=== PATIENT | male | born 1960 | race Caucasian/White ===

== ENCOUNTER → 2019-01-13 | Outpatient (REF) | payer OTHER | LOC: M LAB REF 12:41 | PROVIDERS: ATTEND Ophthalmology | DX: D23.111 Other benign neoplasm of skin of right upper eyelid, including canthus (principal) ==

== ENCOUNTER → 2019-08-15 | Outpatient (REF) | payer OTHER ==
[2019-08-15 18:27] LABS: PLATELET COUNT, AUTOMATED 282 10^3/uL (150-450)
[2019-08-15 18:32] LABS: INR 1.04; PROTHROMBIN TIME 13.3 SECONDS (11.8-14.0)
[2019-08-15 18:33] LABS: PARTIAL THROMBOPLASTIN TIME 33.4 SECONDS (25.0-38.4)
== END ==
LOC: M LAB REF 16:47
PROVIDERS: ATTEND Internal Medicine Pulmonary Disease
DX: R91.8 Other nonspecific abnormal finding of lung field (principal)

== ENCOUNTER → 2019-08-25 | Outpatient (CLI) | payer OTHER ==
[~2019-08-25] MED LIST: ASPI81TA26 PO; DIVA250T67; FLUT1INH2; LISI10TA4; TAMS1CAP17
[2019-08-25 12:23] LABS: BASO # 0.1 10^3/uL (0.0-0.2); BASO % 0.9 % (0.0-1.0); EOS # 0.2 10^3/uL (0.0-0.5); EOS % 2.8 % (0.0-3.0); HEMATOCRIT 50.4 % (42.0-52.0); HEMOGLOBIN 15.7 g/dl (13.5-17.5); LYMPH # 1.2 10^3/uL (1.5-5.0); LYMPH % 14.4 % (24.0-44.0); MEAN CORPUSCULAR HEMOGLOBIN 26.5 pg (27.0-33.0); MEAN CORPUSCULAR HGB CONC 31.2 g/dl (32.0-36.5); MEAN CORPUSCULAR VOLUME 85.1 fl (80.0-96.0); MONO # 0.7 10^3/uL (0.0-0.8); MONO % 8.7 % (0.0-5.0); NEUTROPHILS # 6.2 10^3/uL (1.5-8.5); NEUTROPHILS % 72.8 % (36.0-66.0); PLATELET COUNT, AUTOMATED 251 10^3/uL (150-450); RED BLOOD COUNT 5.92 10^6/uL (4.30-6.10); WHITE BLOOD COUNT 8.5 10^3/uL (4.0-10.0)
[2019-08-25 12:44] LABS: ALBUMIN 3.8 GM/DL (3.2-5.2); ALT/SGPT 22 U/L (12-78); BILIRUBIN,TOTAL 0.3 MG/DL (0.2-1.0); BLOOD UREA NITROGEN 17 MG/DL (7-18); CALCIUM LEVEL 9.1 MG/DL (8.5-10.1); CARBON DIOXIDE LEVEL 26 MEQ/L (21-32); CHLORIDE LEVEL 111 MEQ/L (98-107); CREATININE FOR GFR 1.12 MG/DL (0.70-1.30); GLOMERULAR FILTRATION RATE > 60.0 (>56); GLUCOSE, FASTING 93 MG/DL (70-100); SODIUM LEVEL 141 MEQ/L (136-145); TOTAL PROTEIN 7.6 GM/DL (6.4-8.2)
--- NOTE | 2019-08-25 13:33 | REP ---
Chest x-ray: Two views. History: Post right thoracentesis. Comparison chest x-ray August 13, 2019. Comparison chest CT study August 05, 2019. Findings: The size of the right pleural collection and thickening have decreased post thoracentesis. There is no evidence of pneumothorax. Chronic pleural thickening and calcification persists. Impression: Decreased size of the right pleural process. No complications seen. Electronically Signed by Carlos Marrufo MD 08/25/2019 01:55 P
[2019-08-25 13:37] LABS: PH BODY FLUID 7.098 UNITS (NOT ESTABLISHED); SOURCE, BODY FLUID pH PLEURAL
[2019-08-25 14:29] LABS: APPEARANCE, BODY FLUID CLOTTED (CLEAR); PLEURAL FL COLOR RED (COLORLESS); SOURCE, BODY FLUID PLEURAL
[2019-08-25 14:48] LABS: AMYLASE, BODY FLUID 48 U/L (NOT ESTABLISHED); LDH, BODY FLUID 5362 U/L (NOT ESTABLISHED); SOURCE, BODY FLUID AMYLASE PLEURAL; SOURCE, BODY FLUID GLUCOSE PLEURAL; SOURCE, BODY FLUID LDH PLEURAL; SOURCE, BODY FLUID TOT PROTEIN PLEURAL
[2019-08-25 15:05] VITALS: BP 128/66
--- NOTE | 2019-08-25 16:24 | REP ---
Ultrasound-guided thoracentesis The procedure was performed by SHANA Alexander, under the direct supervision of Dr. Marrufo. The risks and benefits of the procedure were explained to the patient and informed consent was obtained both verbally and written. Directly prior to the start of the procedure, a formal timeout was completed in the exam room. Pleural fluid on the right was localized using ultrasound guidance. The skin was prepped and draped in a sterile fashion. 7 ml of 1% lidocaine 10 mg/ml was used as a local anesthetic. Using ultrasound guidance, an 8-H[place] Konger multi side-hole catheter was inserted and advanced into the fluid. 480 ml of reddish/raoms colored fluid was withdrawn and sent to the lab for analysis. The patient tolerated the procedure well and there were no immediate complications. After the appropriate amount of monitored convalescence, the patient was discharged from the department. Reviewed by SHANA Mosley 08/25/2019 04:15 P Electronically Signed by Carlos Marrufo MD 08/25/2019 04:15 P
== END ==
LOC: M IRPRO 10:36
PROVIDERS: ATTEND Internal Medicine Pulmonary Disease
DX: J90 Pleural effusion, not elsewhere classified (principal)

== ENCOUNTER 2019-09-08 10:25 | Inpatient (IN) | payer OTHER ==
[~2019-09-08] VITALS: Ht 170.2 cm; Wt 87.5 kg
[2019-09-08] VITALS (10 sets, daily range): BP systolic 117–157; BP diastolic 70–84
[2019-09-08] MEDS: MOM 30ML SUSPENSION UDC PO SCH (09:00)
[~2019-09-08 10:25] MED LIST changes: -DIVA250T67; +DIVA250T67 PO; -FLUT1INH2; +FLUT1INH2 INH; -LISI10TA4; +LISI10TA4 PO; -TAMS1CAP17; +TAMS1CAP17 PO
[2019-09-08] MEDS ORDERED: AMOX500T2 PO (10:43)
[2019-09-08 12:14] LABS: BASO # 0.1 10^3/uL (0.0-0.2); BASO % 0.7 % (0.0-1.0); EOS # 0.2 10^3/uL (0.0-0.5); EOS % 1.9 % (0.0-3.0); HEMATOCRIT 45.4 % (42.0-52.0); HEMOGLOBIN 14.7 g/dl (13.5-17.5); LYMPH # 1.1 10^3/uL (1.5-5.0); LYMPH % 9.5 % (24.0-44.0); MEAN CORPUSCULAR HEMOGLOBIN 26.6 pg (27.0-33.0); MEAN CORPUSCULAR HGB CONC 32.4 g/dl (32.0-36.5); MEAN CORPUSCULAR VOLUME 82.2 fl (80.0-96.0); MONO # 0.8 10^3/uL (0.0-0.8); MONO % 6.9 % (0.0-5.0); NEUTROPHILS # 9.7 10^3/uL (1.5-8.5); NEUTROPHILS % 80.4 % (36.0-66.0); PLATELET COUNT, AUTOMATED 301 10^3/uL (150-450); RED BLOOD COUNT 5.52 10^6/uL (4.30-6.10)
[2019-09-08 12:27] LABS: INR 0.99; PROTHROMBIN TIME 12.8 SECONDS (11.8-14.0)
[2019-09-08 12:33] LABS: BLOOD UREA NITROGEN 21 MG/DL (7-18); CARBON DIOXIDE LEVEL 21 MEQ/L (21-32); CHLORIDE LEVEL 109 MEQ/L (98-107); CREATININE FOR GFR 1.05 MG/DL (0.70-1.30); GLOMERULAR FILTRATION RATE > 60.0 (>56); GLUCOSE, FASTING 80 MG/DL (70-100); POTASSIUM SERUM 4.6 MEQ/L (3.5-5.1); SODIUM LEVEL 140 MEQ/L (136-145)
--- NOTE | 2019-09-08 13:22 | HPEPDOC ---
[facility] Medical History & Physical Date of Admission Sep 08, 2019 Date of Service: Sep 08, 2019 Attending Physician: AIDA RAMOS MD History and Physical CHIEF COMPLAINT: Sent by PCP for possible empyema HISTORY OF PRESENT ILLNESS: 59-year-old male with past medical history of hypertension and bipolar depression, presents from PCPs office for evaluation of pleural effusion/possible empyema. Patient had a pleural effusion in 2003 which was drained and thought to have been secondary to pneumonia. He felt well up until a few weeks ago when he started experiencing similar symptoms, underwent a recent increases in the outpatient setting on 08/25/2019, which was exudative but no organisms grew on culture. He has been treated with Augmentin since then, started having some hemoptysis yesterday, went to the emergency department and was discharged home with follow up with primary care physician. He went to see his PCP today who took a sputum sample, which was also bloody and sent to the emergency department for admission. Patient is otherwise asymptomatic, denies any shortness of breath, fever, nausea, vomiting, chest pain, abdominal pain, diarrhea or constipation. His only symptom at this time is hemoptysis that started yesterday. 10 point review of system is negative except for above PAST MEDICAL HISTORY: 1. . Bipolar depression. 2. Hypertension. PAST SURGICAL HISTORY: 1. Hernia repair. SOCIAL HISTORY: Previous smoker, smoked 1 pack per day for 30 years Denies alcohol use. Denies drug use FAMILY HISTORY: Negative for cancer, heart disease ALLERGIES: Please see below. HOME MEDICATIONS: Please see below. PHYSICAL EXAMINATION: VITAL SIGNS: Please see below. GENERAL: No distress HEENT: Normocephalic, atraumatic, moist mucous membranes NECK: Supple CARDIOVASCULAR EXAMINATION: S1, S2, no murmurs RESPIRATORY EXAMINATION: Reduced on the right side with rhonchi, no wheezing ABDOMINAL EXAMINATION: Soft, nontender, nondistended, positive bowel sounds EXTREMITIES: Range of motion intact SKIN: No rash NEUROLOGICAL EXAMINATION: Alert and oriented 3, no focal deficits PSYCHIATRIC EXAMINATION: Calm and cooperative LABORATORY DATA: See below. IMAGING: CT chest showing right pleural effusion with calcification MICROBIOLOGY: Please see below. ASSESSMENT: 59-year-old male with past mental history of bipolar depression and hypertension who is been treated in the outpatient setting for possible empyema, presents today with hemoptysis. PLAN: 1. Possible empyema. CT chest shows moderate right-sided pleural effusion with calcification, thoracic surgery consult pending for possible chest tube versus VATS procedure, empiric Zosyn. 2. Bipolar depression. Continue Depakote 3. Hypertension. Continue lisinopril 4. BPH. Continue Flomax DVT prophylaxis: TEDs. GI prophylaxis: Not needed Vital Signs Vital Signs Date Time Temp Pulse Resp B/P (MAP) Pulse Ox O2 Delivery O2 Flow Rate FiO2 09/08/19 10:50 09/08/19 10:27 98.7 83 18 99 Room Air Laboratory Data Labs 24H Laboratory Tests 2 09/08/19 11:43: Immature Granulocyte % (Auto) 0.6, Neutrophils (%) (Auto) 80.4H, Lymphocytes (%) (Auto) 9.5L, Monocytes (%) (Auto) 6.9H, Eosinophils (%) (Auto) 1.9, Basophils (%) (Auto) 0.7, Neutrophils # (Auto) 9.7H, Lymphocytes # (Auto) 1.1L, Monocytes # (Auto) 0.8, Eosinophils # (Auto) 0.2, Basophils # (Auto) 0.1, Nucleated Red Blood Cells % (auto) 0.0, Prothrombin Time 12.8, Prothromb Time International Ratio 0.99, Activated Partial Thromboplast Time 32.0, Anion Gap 10, Glomerular Filtration Rate > 60.0, Calcium Level 9.0 CBC/BMP Laboratory Tests 09/08/19 11:43 Home Medications Scheduled Amoxicillin/Potassium Clav (Amox-Clav 500-125 mg Tablet) 1 Each Tablet, 1 TAB PO BID FILLED 09/04/19 FOR 10 DAYS Aspirin (Aspirin EC) 81 Mg Tablet.dr, 81 MG PO DAILY Divalproex Sodium (Divalproex Sodium) 250 Mg Tablet.dr, 250 MG PO QHS Fluticasone Propion/Salmeterol (Fluticasone-Salmeterol 113-14) 1 Each Aer.pow.ba, 1 PUFF INH BID Lisinopril (Lisinopril) 10 Mg Tablet, 10 MG PO DAILY Tamsulosin Hcl (Tamsulosin HCl) 0.4 Mg Capsule, 0.4 MG PO QHS Allergies Coded Allergies: haloperidol (Verified Adverse Reaction, Unknown, MUSCLE SPASM, 09/08/19) A-FIB/CHADSVASC A-FIB History Current/History of A-Fib/PAF?: No GONDAL,KHUBAIB N. MD Sep 08, 2019 13:22
--- NOTE | 2019-09-08 13:43 | REP ---
Clinical: Hemoptysis. Empyema. Technique: Axial noncontrast images from the thoracic inlet to the upper abdomen with coronal and sagittal re-formations. Findings: There is a moderate/large chronic right pleural collection with elements of rim calcification and adjacent atelectasis which are essentially unchanged when compared to outside examination dated 07/19/2019. Remainder of lung nick are clear. Mediastinum demonstrates relatively normal thoracic aorta, pulmonary vasculature and heart/pericardium. No aortic aneurysm. No pericardial effusion. No adenopathy. Thyroid goiter suggested. Surrounding musculoskeletal structures demonstrate age-related changes without focal abnormality. Impression: 1. [id number] chronic right empyema with adjacent atelectasis stable compared to outside examination dated 07/19/2019. 2. Goiter. 3. No further acute process. Electronically Signed by Jeffry Asher MD 09/08/2019 01:34 P
[2019-09-08] MEDS ORDERED: HEPARIN SOD (PORCINE) 5000 UNITS/ML VIAL (J1644 PER 1000UNITS) SC SCH (14:00)
[2019-09-08] MEDS: PIPERACILLIN/TAZOBACTAM SOD 3.375 GM in D5W MINI-BAG PLUS 50 ML IV SCH ×2 (14:30→20:25)
[2019-09-08] MEDS ORDERED: NORCO, ANEXSIA 5/325MG TABLET (HYDROcodone/ACETAMINOPHEN) PO PRN (14:45)
[2019-09-08] MEDS ORDERED: BISACODYL 10 MG SUPP PR PRN (14:45)
[2019-09-08] MEDS ORDERED: ACETAMINOPHEN TAB 650MG DOSE (2X325MG) PO PRN (14:45)
[2019-09-08] MEDS ORDERED: LEVALBUTEROL 1.25 MG/0.5 ML CONCENTRATE NEB NEB PRN (14:45)
[2019-09-08] MEDS ORDERED: ONDANSETRON 4MG/2ML VIAL (J2405) IV PRN (14:45)
[2019-09-08] MEDS ORDERED: PERCOCET 5MG/325MG TAB PO PRN ×2 (14:45)
[2019-09-08] MEDS ORDERED: KCL 20MEQ IN D5/NS 1000ML 1,000 ML IV SCH (15:00)
[2019-09-08] MEDS ORDERED: flumazeniL 0.5 MG/5 ML VIAL As Ordered ONE (15:06)
[2019-09-08] MEDS ORDERED: MIDAZOLAM INJ 2 MG/2 ML VIAL (J2250) As Ordered ONE ×2 (15:07→16:21)
[2019-09-08] MEDS ORDERED: LIDOCAINE 1% MDV 20ML VIAL As Ordered ONE (15:08)
--- NOTE | 2019-09-08 15:33 | ECGEPIP ---
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
[2019-09-08] MEDS ORDERED: LIDOCAINE 1% MDV 20ML VIAL XX ONE ×2 (16:30→19:00)
[2019-09-08] MEDS ORDERED: MIDAZOLAM INJ 2 MG/2 ML VIAL (J2250) IV ONE ×2 (16:30→19:00)
--- NOTE | 2019-09-08 16:51 | CR ---
DATE OF CONSULTATION: 09/08/2019 Mr. Grey is seen at the request of Dr. Sebastian for a recurrent pleural effusion and calcific pleural disease. Patient is a 59-year-old white male whose acute story starts this morning when he started to cough up blood. He states it came up in red globs and was more than streaked. He sought attention at the [facility] where he was told to continue Augmentin, which he had been previously placed on. He continued to cough up blood throughout the morning and finally saw Dr. Sebastian this morning and also coughed up blood in his presence. It is notable that his hemoptysis is after he takes a very large sniff through his nose to clear his nose. He does have a known nasal polyp. Nonetheless, he maintains that he is coughing blood, that it is not coming from the back of his throat. He does not complain of any new onset of shortness of breath. For a number of years, he gets short of breath with vigorous physical activity, including running. Other that that, he can do all the daily activities of living and all the normal activities of life. He has the above cough, but there is no chest pain and no chest discomfort. There is no weight loss and no fever, chills or sweats. He has no dysphagia. His pleural effusion was tapped on August 25 for 480 mL of reddish-ramos fluid. The chemistries were returned with a pH of 7.098, with a glucose of less than 1, an LDH of 5362, total protein of 4. A differential was not done. This looked to be an empyema, and he was started on the Augmentin. PAST MEDICAL ILLNESSES: Include hypertension, hyperlipidemia and bipolar depression. His past surgeries include bilateral inguinal hernias. MEDICATIONS AT HOME: Includes Augmentin, which was filled on 08/25/2019, along with aspirin 81 mg daily, divalproex 250 mg nightly, fluticasone/salmeterol 113-14 one puff twice a day, lisinopril 10 mg daily, and tamsulosin 0.4 mg daily. 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 He does not think he has been exposed to asbestos, but he could not really be sure. 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 No dogs or cats. No prior exposure to tuberculosis. HABITS: He used to smoke 1 to 1-1/2 packs a day of ultra lights, quit about 6 weeks ago. He used to have an alcohol problem, but he has not touched alcohol in numerous years. He also used to take numerous illicit drugs in his youth, including cocaine, crack and marijuana. He inhaled those. FAMILY HISTORY: Not pertinent to the acute situation. REVIEW OF SYSTEMS: CONSTITUTIONAL: See history of the present illness. Without fevers, chills, sweats, night sweats or weight loss. EYES: Without diplopia, without amaurosis fugax, without prior jaundice. NOSE: Does have occasional nose bleeds with a nasal polyp. TEETH: Missing numerous teeth. RESPIRATORY: See history of the present illness. CARDIAC: Without palpitations, tachycardias, or prior myocardial infarctions. Without peripheral edema or intermittent claudication. GASTROINTESTINAL: Without nausea, vomiting, diarrhea, constipation, melena, hematochezia, hematemesis or abdominal pain. GENITOURINARY: Without dysuria, hematuria, or history of renal stones. ENDOCRINE: Without diabetes, without thyroid disease. PSYCHIATRIC: With bipolar disorder. NEUROLOGIC: Without paralysis, paresthesias, or seizures. HEMATOLOGIC: Without prolonged bleeding times. PHYSICAL EXAMINATION: Well-developed, well-nourished, overweight white male, in no acute distress, who is quite anxious. Vital Signs: Temperature is 99.0, with a heart rate of 84 in a sinus rhythm, respiratory rate of 18, without the use of accessory muscles, who is 96% saturated on room, and whose blood pressure is 121/84. Eyes: Pupils equal, round and react to light. Extraocular movements intact. Sclerae nonicteric. Head is normocephalic. Nose: Without deformity. Mouth: Shows the mucous membranes to be pink and moist. Lips and commissures are without lesions. There is no thrush. He has multiple missing teeth. Neck is supple. There is no jugular venous distention. No subcutaneous emphysema. Trachea is midline. There is no lymphadenopathy or lymphadenopathy, and he has 2+ carotid upstrokes without bruits. Lungs: Show decreased breath sounds in the right hemithorax with a dull percussion note at the base. I hear scattered rhonchi most which clear with coughing, although there is some expiratory wheezing at the very end of expiration. Cardiac exam is without murmurs, clicks, gallops or rubs. I cannot feel his point of maximum impulse (PMI). S1 and S2 are normal. Abdomen is soft, nontender. Bowel sounds are positive. There is no hepatomegaly. No costovertebral angle (CVA) tenderness. Extremities: Show no pretibial edema. No calf tenderness. No differential swelling of the upper extremities. Skin is warm, dry and perfused, without cyanosis or mottling including that of the nail beds and knees. Neurologic: Shows II-XII intact along with gross motor and gross sensation intact. Gait is also intact. Psychiatric: Shows him to be awake, alert and oriented times three with appropriate mood and affect, but very anxious. INVESTIGATIONS: His white count today is 12.0 compared to 8.5 on 08/25/2019. Hemoglobin and hematocrit are 14.7 and 45.4 with a platelet count of 301. Differential shows 80% neutrophils, 9% lymphocytes, 6% monocytes. There are no immature forms, no toxic granulations. His electrolytes are essentially normal with a BUN and creatinine of 21 and 1.05 with a glucose of 80 and a calcium of 9.0. AST and ALT are normal with an albumin of 3.8. His PT/INR is 12.8 and 0.99 respectively with a PTT of [address] scan done today in the emergency room shows a moderate pleural effusion, but with calcium on both leaves of the pleura, both parietal and visceral pleura. These look to be only unilateral and inferior. It looks as though he has a pleural effusion on both sides of visceral pleura calcium. I really cannot quite make out what that means. My suspicion is the lung is entrapped. He has an exudative effusion, which was tapped a few days ago. I am not completely convinced that this is empyema. See discussion below. He does have underlying compression of the right lower lobe but not overly so. I do not see significant mediastinal lymphadenopathy. There are no other tumor masses. Surprisingly, he does not have an overwhelming amount of emphysematous changes, although there are some. Looks to have hyperplasia of the left adrenal with a normal right adrenal configuration. There are no lesions in his liver. There is no pericardial effusion. IMPRESSION: 1. Chronic recurrent pleural effusion. 2. Calcific pleural disease. 3. History of inhalational drug abuse as a teenager. 4. Nasal polyp. 5. Hemoptysis. 6. Hypertension. 7. Anxiety. PLAN AND DISCUSSION: His last pleurocentesis indicated that he has a highly exudative ascitic hypoglycemic effusion, which is consistent with an empyema but which could also be consistent with metastatic disease. Notably, he has no chest pain as I would expect with inflammatory disease. His chest x-ray done after his pleurocentesis showed marked resolution of his pleural effusion. He still had significant amounts left along the lateral chest wall. He does not have a recent chest film done in the emergency but rather just a CAT scan. I also do not know what to make of his hemoptysis. I do not know whether it is true hemoptysis or whether it is coming from his nasal polyp. He certainly gives the history of having taken deep sniffs through his nose and then all of sudden coughing up blood and that is suspicious for the nasal polyp bleeding. Will have to have Ear, Nose and Throat (ENT) evaluate that. For the time being, I am going to completely drain his chest with a chest tube. This will not be an easy procedure as he has the calcific pleural disease. Depending on what comes out, I may end up doing a tPA pleurolysis on him. Edited: [id number] shelley
--- NOTE | 2019-09-08 17:10 | RO ---
DATE OF PROCEDURE: 09/08/2019 PREPROCEDURE DIAGNOSIS: Right pleural effusion, possible empyema, possible malignancy. POSTPROCEDURE DIAGNOSIS: Right pleural effusion, possible empyema, possible malignancy. PROCEDURE: Insertion of a right lateral chest tube. SURGEON: Dr. Colton Clark CITY DESIGNER: ANESTHESIA: FINDINGS: The patient's CAT scan showed him to have very thick calcifications on both the parietal and pleural surfaces between which was the pleural effusion. The entry to the chest was quite difficult and required an excessive amount of force in order to get through the calcifications. Finally, however, that was accomplished and a #24 chest tube was placed and drained 400 mL of bloody opaque pleural fluid. DESCRIPTION OF PROCEDURE: Under satisfactory moderate sedation achieved with 4 mg of Versed, the patient was prepped and draped in the usual sterile fashion. A site was chosen, judging from the x-ray, in the approximate 7th intercostal space. Incision was made and a tunnel was created down to the chest wall and the rib. The highly calcific pleura was then entered after a considerable amount of force and spreading. The tunnel was expanded with a large Perlita clamp and a #24 chest tube was placed with the above results. Chest tube was secured to the chest wall with a #2 Tevdek suture. The patient tolerated the procedure well. A chest x-ray is pending.
--- NOTE | 2019-09-08 17:20 | REP ---
Portable chest x-ray: Single view. History: Pleural effusion. Comparison chest x-ray: August 25, 2019. Findings: A right chest tube is noted in place terminating over the medial to lower thorax. Pleural thickening persists on the right along with pleural calcification fairly extensively. There is no evidence of pneumothorax. Left lung remains clear. Impression: Right chest tube in place. Electronically Signed by Carlos Marrufo MD 09/08/2019 06:43 P
[2019-09-08 17:33] LABS: PH BODY FLUID 7.028 UNITS (NOT ESTABLISHED); SOURCE, BODY FLUID pH PLEURAL
[2019-09-08] MEDS: PANTOPRAZOLE 40MG TAB (PROTONIX) PO SCH (18:03)
[2019-09-08] MEDS: KETOROLAC 30 MG/ML VIAL (J1885) IV SCH ×2 (18:04→21:21)
[2019-09-08 18:31] LABS: APPEARANCE, BODY FLUID TURBID (CLEAR); PLEURAL FL COLOR RED (COLORLESS); SOURCE, BODY FLUID PLEURAL
[2019-09-08] MEDS: LEVALBUTEROL 1.25 MG/0.5 ML CONCENTRATE NEB NEB SCH (20:00)
[2019-09-08 20:03] LABS: AMYLASE, BODY FLUID 17 U/L (NOT ESTABLISHED); CHOLESTEROL, BODY FLUID < 50 MG/DL (NOT ESTABLISHED); LDH, BODY FLUID 13785 U/L (NOT ESTABLISHED); SOURCE, BODY FLUID ALBUMIN PLEURAL; SOURCE, BODY FLUID AMYLASE PLEURAL; SOURCE, BODY FLUID CHOL PLEURAL; SOURCE, BODY FLUID GLUCOSE PLEURAL; SOURCE, BODY FLUID LDH PLEURAL; SOURCE, BODY FLUID TOT PROTEIN PLEURAL; SOURCE, BODY FLUID TRIG PLEURAL; TOTAL PROTEIN, BODY FLUID 5.1 G/DL (NOT ESTABLISHED); TRIGLYCERIDE, BODY FLUID 71 MG/DL (NOT ESTABLISHED)
[2019-09-08] MEDS: DIVALPROEX 250 MG TAB PO SCH (20:26)
[2019-09-08] MEDS: HEPARIN SOD (PORCINE) 5000 UNITS/ML VIAL (J1644 PER 1000UNITS) SC SCH (20:26)
[2019-09-08] MEDS: TAMSULOSIN 0.4 MG CAP PO SCH (20:27)
[2019-09-08] MEDS: DOCUSATE SODIUM 100 MG CAP PO SCH (20:27)
[2019-09-08] MEDS: ADVAIR HFA 115/21MCG INHALER INH SCH (21:35)
[2019-09-09] VITALS: BP 113/65
[2019-09-09] MEDS: LEVALBUTEROL 1.25 MG/0.5 ML CONCENTRATE NEB NEB SCH ×4 (02:04→20:00)
[2019-09-09 02:38] LABS: LDH LACTATE DEHYDROGENASE 261 U/L (87-241)
[2019-09-09] MEDS: PIPERACILLIN/TAZOBACTAM SOD 3.375 GM in D5W MINI-BAG PLUS 50 ML IV SCH ×4 (03:05→20:10)
[2019-09-09 04:00] VITALS: BP 111/74
[2019-09-09] MEDS: KETOROLAC 30 MG/ML VIAL (J1885) IV SCH (05:02)
[2019-09-09 05:56] LABS: ABG BASE EXCESS -4.9 (-2.0-2.0); ABG HCO3 19.5 MEQ/L (22.0-26.0); ABG O2 SATURATION 97.5 % (95.0-99.0); ABG PARTIAL PRESSURE CO2 34.2 mmHg (35.0-45.0); ABG PARTIAL PRESSURE O2 97.1 mmHg (75.0-100.0); ABG STANDARD HCO3 20.5 MEQ/L (22.0-26.0); ABG TOTAL CO2 20.5 MEQ/L (22.0-29.0); ABG pH (ARTERIAL) 7.373 UNITS (7.350-7.450)
[2019-09-09 06:00] LABS: BASO # 0.1 10^3/uL (0.0-0.2); BASO % 0.8 % (0.0-1.0); EOS # 0.5 10^3/uL (0.0-0.5); EOS % 5.9 % (0.0-3.0); HEMATOCRIT 43.7 % (42.0-52.0); HEMOGLOBIN 13.3 g/dl (13.5-17.5); LYMPH # 0.9 10^3/uL (1.5-5.0); LYMPH % 10.8 % (24.0-44.0); MEAN CORPUSCULAR HGB CONC 30.4 g/dl (32.0-36.5); MEAN CORPUSCULAR VOLUME 85.5 fl (80.0-96.0); MONO # 0.8 10^3/uL (0.0-0.8); MONO % 9.8 % (0.0-5.0); NEUTROPHILS # 6.2 10^3/uL (1.5-8.5); NEUTROPHILS % 72.2 % (36.0-66.0); PLATELET COUNT, AUTOMATED 225 10^3/uL (150-450); RED BLOOD COUNT 5.11 10^6/uL (4.30-6.10); WHITE BLOOD COUNT 8.5 10^3/uL (4.0-10.0)
[2019-09-09 06:33] LABS: ALBUMIN 2.9 GM/DL (3.2-5.2); BILIRUBIN,TOTAL 0.3 MG/DL (0.2-1.0); CALCIUM LEVEL 8.4 MG/DL (8.5-10.1); CREATININE FOR GFR 1.59 MG/DL (0.70-1.30); MAGNESIUM LEVEL 2.3 MG/DL (1.8-2.4); POTASSIUM SERUM 4.6 MEQ/L (3.5-5.1); TOTAL PROTEIN 6.9 GM/DL (6.4-8.2)
[2019-09-09 08:00] VITALS: BP 130/83
--- NOTE | 2019-09-09 08:18 | REP ---
Chest x-ray: Two views. History: Pleural effusion. Status post chest tube placement. Comparison chest x-ray three September 25, 2019. Findings: Right pleural drainage catheter seen in place. There is pleural thickening and calcification in this patient with history of chronic empyema. There is a small quantity of pleural air suspected this just superior to the chest tube all along the right lateral chest. Some volume loss in the right hemithorax again noted. Left lung remains clear. Electronically Signed by Carlos Marrufo MD 09/09/2019 08:09 A
[2019-09-09] MEDS: ADVAIR HFA 115/21MCG INHALER INH SCH ×2 (08:21→21:18)
[2019-09-09] MEDS ORDERED: lisinopriL 10 MG TAB PO SCH (09:00)
[2019-09-09] MEDS ORDERED: ALTEPLASE 2 MG/2 ML VIAL (J2997 PER 1MG) XX ONE (09:00)
[2019-09-09] MEDS: ASPIRIN 81 MG ENTERIC TAB PO SCH (09:48)
[2019-09-09] MEDS: PANTOPRAZOLE 40MG TAB (PROTONIX) PO SCH (09:48)
[2019-09-09] MEDS: MOM 30ML SUSPENSION UDC PO SCH (09:49)
[2019-09-09] MEDS: DOCUSATE SODIUM 100 MG CAP PO SCH ×2 (09:49→20:10)
[2019-09-09] MEDS: HEPARIN SOD (PORCINE) 5000 UNITS/ML VIAL (J1644 PER 1000UNITS) SC SCH ×2 (09:49→20:11)
--- NOTE | 2019-09-09 11:24 | RO ---
DATE OF PROCEDURE: 09/09/2019 PREPROCEDURE DIAGNOSIS: Loculated pleural effusion and empyema. POSTPROCEDURE DIAGNOSIS: Loculated pleural effusion and empyema. PROCEDURE: Installation of tPA into the pleural space. SURGEON: Dr. Colton Clark. PMO ANALYST: ANESTHESIA: DESCRIPTION OF PROCEDURE: The chest tube was clamped and disconnected from the Pleur-evac and sterilely prepped. 6 mg of tPA in 50 mL of normal saline was instilled into the chest tube. The chest tube was again clamped and patient was turned from [id number] to distribute the tPA. The chest tube will be unclamped at 4 hours.
--- NOTE | 2019-09-09 11:35 | IPN ---
DATE OF SERVICE: 09/09/2019 Mr. Grey is doing rather well this morning. His pain is being well controlled at the chest tube insertion site. I am surprised that he is doing so well with his pain considering difficulty with insertion. His vital signs show a maximum temperature (Tmax) of 97.7 with a heart rate that ranges between 77 and 82 in a sinus rhythm, respiratory rate of 18-20 without the use of accessory muscles, who is 97% saturated on room air, and whose blood pressure is ranging between 117/77 to 130/83. His intake and output over the past 24 hours has been recorded as 476 in and 138 out for a positivity of 338 mL. He has put out 138 mL from the chest tube after insertion, after initial drainage 400 mL. Today in the last 10 hours, he has taken in 1150 mL and has had 788 mL out of which 750 mL is urine and 38 has been in chest tube output. The chest tube output is clearing and is now more serous. On physical examination, he has bilateral wheezing on either side in late expiration. Percussion note is full to the diaphragm. I hear no rales. He has scattered rhonchi, which clear with coughing. Cardiac examination: Is without murmurs, clicks, gallops, or rubs. I cannot feel his point of maximal impulse (PMI). S1 and S2 are normal. Abdomen: Is soft, nontender. Bowel sounds are positive. There is no hepatomegaly, no costovertebral angle (CVA) tenderness. He has had a bowel movement today. Extremities: Show no pretibial edema, no calf tenderness, no differential swelling of the upper extremities. Skin: Is warm, dry, and perfused without cyanosis or mottling, including that of the nail beds and the knees. Neck: Is supple. There is no jugular venous distention, no subcutaneous emphysema. Trachea is midline. Mouth: Shows his mucous membranes to be pink and moist. Lips and commissures without lesions. There is no thrush. Eyes: Show his pupils to be equal and reactive. Extraocular motor intact. Sclerae anicteric. Neurologic: Shows II-XII intact, along with gross motor and gross sensation intact. Gait is not tested. Psychiatric: Shows him to be awake and alert, oriented times three with appropriate mood and affect and conversational. His white count today is down to 8.5 with hemoglobin and hematocrit of 13.3 and 43.7 and a platelet count of 255. Differential shows 72% neutrophils, 10% lymphocytes, and 9% monocytes. There are no immature forms. No toxic granulations. His electrolytes are normal today with a BUN and creatinine of 33 and 1.59 which is up from 21 and 1.05. I will discontinue his Toradol. Glucose is 113 with a calcium of 8.4 and a corresponding albumin of 2.9. AST and ALT are normal. His plural fluid has come back with a pH of 7.028 with a glucose less than 1 and an LDH of 13,785. Total protein is 5.1. He has 106,000 white cells, 89% of which are neutrophils and 10% are mononuclears or lymphocytes. This, therefore, looks like an inflammatory empyema with severe exudation. Microbiology does not show any organisms. Culture results are pending. His chest x-ray today shows good resolution of the pleural effusion. The lung, however, has not completed expanded to the chest wall as it is encased in calcium. Right costophrenic angle is still obliterated. The chest tube looks to be in good place. I think that the lung is entrapped superiorly, and I do not see lung markings all the way out to the cupula. IMPRESSION: 1. Pleural effusion. Inflammatory. Exudative. Looking like an empyema. 2. Calcific pleural disease. 3. History of inhalational drug abuse as a teenager. 4. Nasal polyps. 5. Hemoptysis. 6. Hypertension. 7. Anxiety. PLAN AND DISCUSSION: I am still quite leery of calling this 100% an empyema. He has no chest pain as one would expect with a severe inflammatory response. I am still suspicious that it may be underlying malignancy; i.e, mesothelioma with severe calcifications of his pleura. I will await cytology. I will do a TPA pleurolysis after which I will repeat a CT scan. So, all the objective evidence points to an empyema.
[2019-09-09 12:00] VITALS: BP 136/77
[2019-09-09 16:00] VITALS: BP 140/86
[2019-09-09 20:00] VITALS: BP 151/91
[2019-09-09] MEDS: DIVALPROEX 250 MG TAB PO SCH (20:10)
[2019-09-09] MEDS: TAMSULOSIN 0.4 MG CAP PO SCH (20:10)
--- NOTE | 2019-09-09 21:56 | IPNPDOC ---
Date Seen The patient was seen on 09/09/19. Progress Note HISTORY OF PRESENT ILLNESS: 59-year-old male with past medical history of hypertension and bipolar depression, presents from PCPs office for evaluation of pleural effusion/possible empyema. Patient had a pleural effusion in 2003 which was drained and thought to have been secondary to pneumonia. He felt well up until a few weeks ago when he started experiencing similar symptoms, underwent a recent increases in the outpatient setting on 08/25/2019, which was exudative but no organisms grew on culture. He has been treated with Augmentin since then, started having some hemoptysis yesterday, went to the emergency department and was discharged home with follow up with primary care physician. He went to see his PCP today who took a sputum sample, which was also bloody and sent to the emergency department for admission. Patient is otherwise asymptomatic, denies any shortness of breath, fever, nausea, vomiting, chest pain, abdominal pain, diarrhea or constipation. His only symptom at this time is hemoptysis that started yesterday. 09/09/19 s/p chest tube placement yesterday, tPA was inserted into pleural space today to augment fluid removal. Patient comfortable, reports significant improvement in SOB, without any complaints at this time. He denies any chest pain, N/V/D or abdominal pain. Chest tube w/ serosanguinous drainage, exudative. 10 point review of system is negative except for above PHYSICAL EXAMINATION: VITAL SIGNS: Please see below. GENERAL: No distress HEENT: Normocephalic, atraumatic, moist mucous membranes NECK: Supple CARDIOVASCULAR EXAMINATION: S1, S2, no murmurs RESPIRATORY EXAMINATION: Reduced sided chest tube, rhonchi on R side w/ diminished breath sounds, no wheezing ABDOMINAL EXAMINATION: Soft, nontender, nondistended, positive bowel sounds EXTREMITIES: Range of motion intact SKIN: No rash NEUROLOGICAL EXAMINATION: Alert and oriented 3, no focal deficits PSYCHIATRIC EXAMINATION: Calm and cooperative LABORATORY DATA: See below. IMAGING: CT chest showing right pleural effusion with calcification MICROBIOLOGY: Please see below. ASSESSMENT: 59-year-old male with past mental history of bipolar depression and hypertension who is been treated in the outpatient setting for possible empyema, presents today with hemoptysis. PLAN: 1. Possible empyema. s/p chest tube & tPA into pleural space, chest tube draining serosanguinous fluid, pleural fluid exudative, suspicious for empyema vs malignancy. Gram stain w/o organisms, cultures & cytology pending. continue Zosyn 2. АННА - possibly due to IV NSAIDS and Antibiotics, Toradol & Lisinopril discontinued, will monitor. 3. Bipolar depression. Continue Depakote 4. Hypertension. Continue lisinopril 5. BPH. Continue Flomax DVT prophylaxis: Heparin SubQ GI prophylaxis: PPI VS, I&O, 24H, Fishbone Vital Signs/I&O Vital Signs Date Time Temp Pulse Resp B/P (MAP) Pulse Ox O2 Delivery O2 Flow Rate FiO2 09/09/19 20:00 97.7 79 18 151/91 (111) 97 Room Air 09/08/19 16:45 2.0 I&O- Last 24 Hours up to 6 AM 09/09/19 06:00 Intake Total 526 ml Output Total 626 ml Balance -100 ml Laboratory Data 24H LABS Laboratory Tests 2 09/09/19 05:36: Immature Granulocyte % (Auto) 0.5, Neutrophils (%) (Auto) 72.2H, Lymphocytes (%) (Auto) 10.8L, Monocytes (%) (Auto) 9.8H, Eosinophils (%) (Auto) 5.9H, Basophils (%) (Auto) 0.8, Neutrophils # (Auto) 6.2, Lymphocytes # (Auto) 0.9L, Monocytes # (Auto) 0.8, Eosinophils # (Auto) 0.5, Basophils # (Auto) 0.1, Nucleated Red Blood Cells % (auto) 0.0, Blood Gas Bicarbonate Standard 20.5L, Arterial Blood pH 7.373, Arterial Blood Partial Pressure CO2 34.2L, Arterial Blood Partial Pressure O2 97.1, Arterial Blood Total CO2 20.5L, Arterial Blood HCO3 19.5L, Arterial Blood Base Excess -4.9L, Arterial Blood Oxygen Saturation 97.5, Anion Gap 7L, Glomerular Filtration Rate 48.0L, Calcium Level 8.4L, Magnesium Level 2.3, Total Bilirubin 0.3, Aspartate Amino Transf (AST/SGOT) 13, Alanine Aminotransferase (ALT/SGPT) 19, Alkaline Phosphatase 62, Total Protein 6.9, Albumin 2.9L, Albumin/Globulin Ratio 0.73L CBC/BMP Laboratory Tests 09/09/19 05:36 Microbiology Microbiology 09/08/19 Acid Fast Stain, Received Pending 09/08/19 Mycobacterial Culture, Received Pending 09/08/19 Fungal Smear, Received Pending 09/08/19 Fungal Culture, Received Pending 09/08/19 Gram Stain - Final, Resulted 09/08/19 Anaerobic Culture, Resulted Pending 09/08/19 Body Fluid Culture, Received Pending AIDA RAMOS MD Sep 09, 2019 21:56
[2019-09-10] VITALS: BP 132/82
[2019-09-10] MEDS: LEVALBUTEROL 1.25 MG/0.5 ML CONCENTRATE NEB NEB SCH ×4 (01:33→20:00)
[2019-09-10] MEDS: PIPERACILLIN/TAZOBACTAM SOD 3.375 GM in D5W MINI-BAG PLUS 50 ML IV SCH ×4 (03:22→20:17)
[2019-09-10 04:00] VITALS: BP 130/74
[2019-09-10 05:44] LABS: BASO % 0.5 % (0.0-1.0); EOS # 0.5 10^3/uL (0.0-0.5); EOS % 6.3 % (0.0-3.0); HEMATOCRIT 42.3 % (42.0-52.0); HEMOGLOBIN 13.1 g/dl (13.5-17.5); LYMPH # 0.9 10^3/uL (1.5-5.0); LYMPH % 10.5 % (24.0-44.0); MEAN CORPUSCULAR HEMOGLOBIN 26.1 pg (27.0-33.0); MEAN CORPUSCULAR VOLUME 84.3 fl (80.0-96.0); MONO # 0.7 10^3/uL (0.0-0.8); MONO % 8.4 % (0.0-5.0); NEUTROPHILS # 6.3 10^3/uL (1.5-8.5); NEUTROPHILS % 73.8 % (36.0-66.0); PLATELET COUNT, AUTOMATED 239 10^3/uL (150-450); RED BLOOD COUNT 5.02 10^6/uL (4.30-6.10); WHITE BLOOD COUNT 8.6 10^3/uL (4.0-10.0)
[2019-09-10 06:07] LABS: CALCIUM LEVEL 8.5 MG/DL (8.5-10.1); CREATININE FOR GFR 1.31 MG/DL (0.70-1.30)
[2019-09-10 08:00] VITALS: BP 140/80
--- NOTE | 2019-09-10 08:25 | REP ---
CHEST X-RAY: Two views. HISTORY: Pleural effusion. COMPARISON STUDY: September 09, 2019. FINDINGS: Right chest tube remains in place. Pleural thickening, calcification, and a small amount of pleural air is seen adjacent to the chest tube site. The right hemithorax is unchanged. No new infiltrate is noted on the left. Heart is not enlarged. IMPRESSION: Stable changes right hemithorax. Electronically Signed by Carlos Marrufo MD 09/10/2019 09:12 A
[2019-09-10] MEDS: lisinopriL 10 MG TAB PO SCH (09:00)
[2019-09-10] MEDS: MOM 30ML SUSPENSION UDC PO SCH (09:00)
[2019-09-10] MEDS: DOCUSATE SODIUM 100 MG CAP PO SCH ×2 (09:00→20:15)
[2019-09-10] MEDS: HEPARIN SOD (PORCINE) 5000 UNITS/ML VIAL (J1644 PER 1000UNITS) SC SCH ×2 (09:44→20:16)
[2019-09-10] MEDS: PANTOPRAZOLE 40MG TAB (PROTONIX) PO SCH (09:44)
[2019-09-10] MEDS: ASPIRIN 81 MG ENTERIC TAB PO SCH (09:44)
[2019-09-10] MEDS: ADVAIR HFA 115/21MCG INHALER INH SCH ×2 (09:51→21:03)
--- NOTE | 2019-09-10 10:07 | REP ---
CT CHEST WITHOUT CONTRAST: HISTORY: Pleural effusion. CT FINDINGS: The right chest tube is seen within the chronic of right pleural fluid collection. There is air occupying the previously noted complex fluid collection. There is visceral and parietal pleural thickening and considerable calcification as on prior CT study. The volume of the collection is improved. There is still volume loss in the right hemithorax. No new infiltrate is seen. IMPRESSION: Chest tube in place in the chronic empyema cavity. There is visceral and parietal pleural calcification and significant pleural thickening. The cavity is decreased in size and contains air. Electronically Signed by Carlos Marrufo MD 09/10/2019 10:38 A
[2019-09-10] MEDS ORDERED: SLF 3 ML SYR IV PRN (11:30)
[2019-09-10 12:00] VITALS: BP 140/90
[2019-09-10] MEDS ORDERED: POLYVINYL ALCOHOL OPHTH SOLN 15 ML(LIQUITEARS) OU PRN (12:00)
--- NOTE | 2019-09-10 15:05 | IPN ---
DATE: 09/10/2019 Mr. Grey put out about 250 mL from his chest tube after his tPA pleurolysis. He is feeling well today. He is not taking anything for pain. His vital signs show a maximum temperature (T-max) of 97.8 with a heart rate that ranges between 77 and 88 in sinus rhythm, respiratory rate of 20-18 without the use of accessory muscles who is 97% saturated on room air and his blood pressure ranges between 136/77 to 151/91. His intake and output over the past 24 hours is recorded as 3150 in and 2583 out for a positivity of 565 mL. He put out 283 mL from the chest tube after ht tPA pleurolysis. He weighs 87.7 kg today compared to 90 kg yesterday. He put out 2300 mL in urine. On physical examination, he still has expiratory wheezing throughout almost all of his inspiration. Percussion note is dull at the right hemithorax at the base. I hear some rhonchi. Cardiac exam shows a murmur at the apex of approximately a grade 2. I have not heard that before. I cannot feel his point of maximum impulse (PMI). S1 and S2 are normal. Abdomen is soft and nontender. Bowel sounds are positive. There is no hepatomegaly. No costovertebral angle (CVA) tenderness. Extremities show no pretibial edema with no calf tenderness. No differential swelling of the upper extremities. Skin is warm, dry and perfused without cyanosis or mottling including that of the nail beds and knees. Neck is supple. There is no jugular venous distention. No subcutaneous emphysema. Trachea is midline. Mouth shows his mucous membranes to be pink and moist. Lips and commissures are without lesions. There is no thrush. Eyes show his pupils to be equal and reactive. Extraocular movements intact. Sclerae nonicteric. Neurologic shows II-XII intact along with gross motor and gross sensation intact. Gait is not tested. Psychiatric showed him to be awake, alert and oriented times three with appropriate and affect and conversational. His white count today is 8.6 unchanged from yesterday with a hemoglobin and hematocrit of 13.1 and 42.3, also unchanged from yesterday with a platelet count of 239. Differential shows 72% neutrophils, 10% lymphocytes, 8% monocytes. There are no immature forms or toxic granulations. His electrolytes show a potassium 5.0 up from 4.6 yesterday with a BUN and creatinine that are improving to 24 and 1.31 from 33 and 1.59. Toradol was discontinued yesterday. Glucose is 108 with a calcium of 8.5. Microbiology shows no aerobic or anaerobic growth and organisms with a Gram stain. Pathology is pending. His chest x-ray shows the lung from the chest wall in the bottom portion of the right hemithorax. Chest tube looks to be in good place. Looks to have increased markings on the right side. I did obtain a chest CT of him today. Chest CT confirms that the visceral and parietal pleura are not opposed in the inferior portion of the hemothorax. The residual exudate looks to be evacuated after the tPA pleurolysis. There looks to be a slight bit of consolidation and/or infiltrate at the anterior costophrenic angle. I am not sure whether this is compression or whether this is the residual of pneumonia. I do not see pulmonary masses. It is showing some bronchiectasis in the upper lobe on the right side. The CT is done without contrast but I do not see very impressive mediastinal lymphadenopathy. There is hyperplasia of the left adrenal and normal configuration of the right adrenal. I see no liver lesions. IMPRESSION: 1. Recurrent pleural effusion looking like empyema. 2. Calcific pleural disease. 3. Entrapped lung. 4. History of inhalation drug abuse as a teenager. 5. Nasal polyps. 6. Hemoptysis seemingly resolved. 7. Hypertension. 8. Anxiety. 9. Transient renal insufficiency. PLAN AND DISCUSSION: While the pleural fluid again points very strongly towards an underlying empyema, there are still other diagnostic considerations to consider. 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 I do not see any parenchymal tubercular lesions but I will at least run a QuantiFERON GOLD on him. If the QuantiFERON GOLD comes back positive, it may not indicate active disease, but it will also indicate prior exposure. I will ask for a sputum for acid-fasting bacillus (AFB). Will also send off rheumatoid markers of rheumatoid factor and screening antinuclear antibody (AVTAR). He remains on Zosyn which I think is perfectly acceptable and in deed reasonable. I would keep him on antibiotics for at least 10 days. Eventually, I will have to remove the chest tube and accept the fact that he will refill that space where the lung is entrapped. The goal is to have it refill without becoming infected again. CHARAN
[2019-09-10] MEDS: SLF 3 ML SYR IV SCH ×2 (15:37→20:16)
[2019-09-10 16:00] VITALS: BP 143/85
--- NOTE | 2019-09-10 19:11 | IPNPDOC ---
Date Seen The patient was seen on 09/10/19. Progress Note HISTORY OF PRESENT ILLNESS: 59-year-old male with past medical history of hypertension and bipolar depression, presents from PCPs office for evaluation of pleural effusion/possible empyema. Patient had a pleural effusion in 2003 which was drained and thought to have been secondary to pneumonia. He felt well up until a few weeks ago when he started experiencing similar symptoms, underwent a recent increases in the outpatient setting on 08/25/2019, which was exudative but no organisms grew on culture. He has been treated with Augmentin since then, started having some hemoptysis yesterday, went to the emergency department and was discharged home with follow up with primary care physician. He went to see his PCP today who took a sputum sample, which was also bloody and sent to the emergency department for admission. Patient is otherwise asymptomatic, denies any shortness of breath, fever, nausea, vomiting, chest pain, abdominal pain, diarrhea or constipation. His only symptom at this time is hemoptysis that started yesterday. 09/09/19 s/p chest tube placement yesterday, tPA was inserted into pleural space today to augment fluid removal. Patient comfortable, reports significant improvement in SOB, without any complaints at this time. He denies any chest pain, N/V/D or abdominal pain. Chest tube w/ serosanguinous drainage, exudative. 09/10/19 Patient comfortable in the morning, having minimal chest discomfort, denies any dyspnea, cough, not requiring medication for pain control. 10 point review of system is negative except for above PHYSICAL EXAMINATION: VITAL SIGNS: Please see below. GENERAL: No distress HEENT: Normocephalic, atraumatic, moist mucous membranes NECK: Supple CARDIOVASCULAR EXAMINATION: S1, S2, no murmurs RESPIRATORY EXAMINATION: Right sided chest tube, rhonchi on R side w/ diminished breath sounds, no wheezing ABDOMINAL EXAMINATION: Soft, nontender, nondistended, positive bowel sounds EXTREMITIES: Range of motion intact SKIN: No rash NEUROLOGICAL EXAMINATION: Alert and oriented 3, no focal deficits PSYCHIATRIC EXAMINATION: Calm and cooperative LABORATORY DATA: See below. IMAGING: CT chest showing right pleural effusion with calcification MICROBIOLOGY: Please see below. ASSESSMENT: 59-year-old male with past mental history of bipolar depression and hypertension who is been treated in the outpatient setting for possible empyema, presents today with hemoptysis. PLAN: 1. Possible empyema. s/p chest tube & tPA into pleural space, chest tube draining serosanguinous fluid, pleural fluid exudative, suspicious for empyema vs malignancy. Gram stain w/o organisms, cultures & cytology pending, TB and rheumatological workup ordered as well. Continue Zosyn 2. АННА - possibly due to IV NSAIDS and Antibiotics, improving, restart lisinopril to [place], will monitor. 3. Bipolar depression. Continue Depakote 4. Hypertension. Lisinopril restarted 5. BPH. Continue Flomax DVT prophylaxis: Heparin SubQ GI prophylaxis: PPI VS, I&O, 24H, Fishbone Vital Signs/I&O Vital Signs Date Time Temp Pulse Resp B/P (MAP) Pulse Ox O2 Delivery O2 Flow Rate FiO2 09/10/19 16:00 97.4 89 20 143/85 (104) 98 Room Air 09/08/19 16:45 2.0 I&O- Last 24 Hours up to 6 AM 09/10/19 06:00 Intake Total 3100 ml Output Total 2430 ml Balance 670 ml Laboratory Data 24H LABS Laboratory Tests 2 09/10/19 05:27: Immature Granulocyte % (Auto) 0.5, Neutrophils (%) (Auto) 73.8H, Lymphocytes (%) (Auto) 10.5L, Monocytes (%) (Auto) 8.4H, Eosinophils (%) (Auto) 6.3H, Basophils (%) (Auto) 0.5, Neutrophils # (Auto) 6.3, Lymphocytes # (Auto) 0.9L, Monocytes # (Auto) 0.7, Eosinophils # (Auto) 0.5, Basophils # (Auto) 0.0, Nucleated Red Blood Cells % (auto) 0.0, Anion Gap 7L, Glomerular Filtration Rate 60.0, Calcium Level 8.5 09/10/19 09:56: Rheumatoid Factor < 10.0 CBC/BMP Laboratory Tests 09/10/19 05:27 Microbiology Microbiology 09/08/19 Acid Fast Stain, Received Pending 09/08/19 Mycobacterial Culture, Received Pending 09/08/19 Fungal Smear, Received Pending 09/08/19 Fungal Culture, Received Pending 09/08/19 Gram Stain - Final, Complete 09/08/19 Anaerobic Culture - Final, Complete 09/08/19 Body Fluid Culture - Final, Complete AIDA RAMOS MD Sep 10, 2019 19:11
[2019-09-10 20:00] VITALS: BP 158/86
[2019-09-10] MEDS: DIVALPROEX 250 MG TAB PO SCH (20:15)
[2019-09-10] MEDS: TAMSULOSIN 0.4 MG CAP PO SCH (20:15)
[2019-09-11] VITALS: BP 156/82
[2019-09-11] MEDS: LEVALBUTEROL 1.25 MG/0.5 ML CONCENTRATE NEB NEB SCH ×4 (01:32→20:00)
[2019-09-11] MEDS: PIPERACILLIN/TAZOBACTAM SOD 3.375 GM in D5W MINI-BAG PLUS 50 ML IV SCH ×4 (02:35→20:51)
[2019-09-11 04:00] VITALS: BP 150/78
[2019-09-11] MEDS: SLF 3 ML SYR IV SCH ×3 (06:42→21:16)
[2019-09-11 07:18] LABS: BASO # 0.1 10^3/uL (0.0-0.2); BASO % 0.5 % (0.0-1.0); EOS # 0.4 10^3/uL (0.0-0.5); HEMATOCRIT 44.6 % (42.0-52.0); HEMOGLOBIN 14.2 g/dl (13.5-17.5); LYMPH # 1.1 10^3/uL (1.5-5.0); LYMPH % 11.9 % (24.0-44.0); MEAN CORPUSCULAR HEMOGLOBIN 26.7 pg (27.0-33.0); MEAN CORPUSCULAR HGB CONC 31.8 g/dl (32.0-36.5); MONO # 0.8 10^3/uL (0.0-0.8); MONO % 8.1 % (0.0-5.0); NEUTROPHILS # 6.9 10^3/uL (1.5-8.5); PLATELET COUNT, AUTOMATED 294 10^3/uL (150-450); RED BLOOD COUNT 5.31 10^6/uL (4.30-6.10); WHITE BLOOD COUNT 9.2 10^3/uL (4.0-10.0)
[2019-09-11] MEDS: ADVAIR HFA 115/21MCG INHALER INH SCH ×2 (07:28→22:48)
[2019-09-11 07:35] LABS: BLOOD UREA NITROGEN 14 MG/DL (7-18); CALCIUM LEVEL 9.4 MG/DL (8.5-10.1); CARBON DIOXIDE LEVEL 25 MEQ/L (21-32); CHLORIDE LEVEL 109 MEQ/L (98-107); CREATININE FOR GFR 1.21 MG/DL (0.70-1.30); GLOMERULAR FILTRATION RATE > 60.0 (>56); GLUCOSE, FASTING 100 MG/DL (70-100); POTASSIUM SERUM 5.1 MEQ/L (3.5-5.1); SODIUM LEVEL 141 MEQ/L (136-145)
[2019-09-11 08:00] VITALS: BP 134/82
--- NOTE | 2019-09-11 08:00 | REP ---
Chest x-ray: Two views. History: Pleural effusion. Comparison study September 10, 2019. Findings: Right chest tube remains in place. Significant pleural thickening and pleural calcification are again noted along the right lateral chest wall unchanged. Left lung remains clear. Electronically Signed by Carlos Marrufo MD 09/11/2019 07:52 A
[2019-09-11] MEDS: DOCUSATE SODIUM 100 MG CAP PO SCH ×2 (09:00→20:52)
[2019-09-11] MEDS: MOM 30ML SUSPENSION UDC PO SCH (09:00)
[2019-09-11] MEDS: HEPARIN SOD (PORCINE) 5000 UNITS/ML VIAL (J1644 PER 1000UNITS) SC SCH ×2 (09:16→20:51)
[2019-09-11] MEDS: ASPIRIN 81 MG ENTERIC TAB PO SCH (09:17)
[2019-09-11] MEDS: PANTOPRAZOLE 40MG TAB (PROTONIX) PO SCH (09:17)
[2019-09-11] MEDS: lisinopriL 10 MG TAB PO SCH (09:17)
[2019-09-11 12:00] VITALS: BP 141/88
--- NOTE | 2019-09-11 12:48 | IPN ---
DATE: 09/11/2019 Mr. Abarca continues to drain from the chest tube. There is no air leak. The pain is being well controlled. His vital signs show a maximum temperature (t-max) of 98.9 with a heart rate that ranges between 89 and 76 in a sinus rhythm, respiratory rate of 16 to 20 without the use of accessory muscles, who is 98% saturated on room air and whose blood pressure is ranging between 140/90 to 158/86. His intake and output the past 24 hours has been recorded as 1926 in and 420 out for a positivity of 1506 mL. He has put out 170 mL out of the chest tube. Weight today is 91 kg compared to 87.7 kg yesterday. PHYSICAL EXAMINATION: LUNGS: His wheezing is much better today. I still hear some slight expiratory wheezes at the end of expiration. He has some inspiratory rhonchi, most of which clear with coughing. Percussion note is full to the diaphragm. CARDIAC EXAM: The systolic murmur at the apex, grade II. I cannot feel his point of maximum impulse (PMI). S1, S2 are normal. ABDOMEN: Soft, nontender. Bowel sounds positive. There is no hepatomegaly. No costovertebral angle tenderness. EXTREMITIES: Show no pretibial edema. No calf tenderness. No differential swelling of the upper extremities. SKIN: Warm, dry and perfused without cyanosis or mottling, including that of the nail beds and knees. NECK: Supple. There is no jugular venous distention. No subcutaneous emphysema. Trachea is midline. MOUTH: Shows his mucous membranes to be pink and moist. Lips and commissures without lesions. There is no thrush. EYES: Show his pupils to be equal and reactive. Extraocular motion intact. Sclerae anicteric. NEUROLOGIC: Shows II through XII intact with gross motor and gross sensation intact. Gait is not tested. PSYCHIATRIC: Shows him to be awake and alert, oriented times three with appropriate mood and affect and conversational. His white count today is 9.2, essentially unchanged from yesterday's of 8.6. Hemoglobin and hematocrit are 14.2 and 44.6 with a platelet count of 294. Differential shows 75% neutrophils, 11% lymphocytes, 8% monocytes. There are no immature forms and no toxic granulations. Electrolytes are essentially normal with his BUN and creatinine normalizing to 14 and 1.21. Glucose is 100, calcium 9.4. There were no blood gases on him today. I discussed his pleural fluid yesterday with marked empyema. Rheumatoid factor is negative. AVTAR screen is pending, as is his QuantiFERON Gold. There is no new microbiology. I did send a sputum for acid fast organisms. Final pathology is pending on the cell block and pleural fluid. His chest x-ray today again shows a residual air space between the lung and chest wall with both leaves of the pleura calcified. Chest tube in good position. Costophrenic angle is blunted on the right, sharp on the left. I see no infiltrates on the lateral film. He does seem to have increased markings and alveolar markings on the AP view. Review of his CT scan shows a small residual air space in the upper extents of the hemithorax, which I can see on the chest x-ray. It is certainly more pronounced on the chest x-ray than it is on the chest CT. IMPRESSION: 1. Recurrent pleural effusion with marked empyema. 2. Calcific pleural disease. 3. Entrapped lung. 4. History of inhalation and drug abuse as a teenager. 5. Nasal polyps. 6. Hemoptysis, resolved. 7. Hypertension. 8. Anxiety. 9. Transient renal insufficiency, resolving. 10. Exposure to pigeons, which is his hobby. PLAN/DISCUSSION: I am going to continue the chest tube until he almost drains nothing. We do need a requisite amount of time to assure us that when I do remove the chest tubes that the fluid, which will inevitably reaccumulate, will not be infected. We are still awaiting results of the QuantiFERON Gold to see if he has been even exposed to a tuberculosis. We are also awaiting pathology to see if there any underlying malignancy.
[2019-09-11 16:00] VITALS: BP 151/77
--- NOTE | 2019-09-11 19:22 | IPNPDOC ---
Date Seen The patient was seen on 09/11/19. Progress Note HISTORY OF PRESENT ILLNESS: 59-year-old male with past medical history of hypertension and bipolar depression, presents from PCPs office for evaluation of pleural effusion/possible empyema. Patient had a pleural effusion in 2003 which was drained and thought to have been secondary to pneumonia. He felt well up until a few weeks ago when he started experiencing similar symptoms, underwent a recent increases in the outpatient setting on 08/25/2019, which was exudative but no organisms grew on culture. He has been treated with Augmentin since then, started having some hemoptysis yesterday, went to the emergency department and was discharged home with follow up with primary care physician. He went to see his PCP today who took a sputum sample, which was also bloody and sent to the emergency department for admission. Patient is otherwise asymptomatic, denies any shortness of breath, fever, nausea, vomiting, chest pain, abdominal pain, diarrhea or constipation. His only symptom at this time is hemoptysis that started yesterday. 09/09/19 s/p chest tube placement yesterday, tPA was inserted into pleural space today to augment fluid removal. Patient comfortable, reports significant improvement in SOB, without any complaints at this time. He denies any chest pain, N/V/D or abdominal pain. Chest tube w/ serosanguinous drainage, exudative. 09/10/19 Patient comfortable in the morning, having minimal chest discomfort, denies any dyspnea, cough, not requiring medication for pain control. 09/11/19 No acute events overnight, comfortable, denies any dyspnea or chest pain, Chest tube with small amount of serosanguinous drainage overnight, no complaints at this time. 10 point review of system is negative except for above PHYSICAL EXAMINATION: VITAL SIGNS: Please see below. GENERAL: No distress HEENT: Normocephalic, atraumatic, moist mucous membranes NECK: Supple CARDIOVASCULAR EXAMINATION: S1, S2, no murmurs RESPIRATORY EXAMINATION: Right sided chest tube, rhonchi on R side w/ diminished breath sounds, no wheezing ABDOMINAL EXAMINATION: Soft, nontender, nondistended, positive bowel sounds EXTREMITIES: Range of motion intact SKIN: No rash NEUROLOGICAL EXAMINATION: Alert and oriented 3, no focal deficits PSYCHIATRIC EXAMINATION: Calm and cooperative LABORATORY DATA: See below. IMAGING: CT chest showing right pleural effusion with calcification MICROBIOLOGY: Please see below. ASSESSMENT: 59-year-old male with past mental history of bipolar depression and hypertension who is been treated in the outpatient setting for possible empyema, presents today with hemoptysis. PLAN: 1. Possible empyema. s/p chest tube & tPA into pleural space, chest tube draining serosanguinous fluid, pleural fluid exudative, suspicious for empyema vs malignancy vs chronic inflammation. Gram stain w/o organisms, cultures & cytology pending, TB and rheumatological workup pending as well. Continue Zosyn. 2. АННА - possibly due to NSAIDS and Antibiotics, resolved w/ IV fluids, will monitor. 3. Bipolar depression. Continue Depakote 4. Hypertension. continue Lisinopril 5. BPH. Continue Flomax DVT prophylaxis: Heparin SubQ GI prophylaxis: PPI VS, I&O, 24H, Fishbone Vital Signs/I&O Vital Signs Date Time Temp Pulse Resp B/P (MAP) Pulse Ox O2 Delivery O2 Flow Rate FiO2 09/11/19 16:00 98.0 83 16 151/77 (101) 94 Room Air 09/08/19 16:45 2.0 I&O- Last 24 Hours up to 6 AM 09/11/19 06:00 Intake Total 1926 ml Output Total 735 ml Balance 1191 ml Laboratory Data 24H LABS Laboratory Tests 2 09/11/19 07:01: Immature Granulocyte % (Auto) 0.5, Neutrophils (%) (Auto) 75.0H, Lymphocytes (%) (Auto) 11.9L, Monocytes (%) (Auto) 8.1H, Eosinophils (%) (Auto) 4.0H, Basophils (%) (Auto) 0.5, Neutrophils # (Auto) 6.9, Lymphocytes # (Auto) 1.1L, Monocytes # (Auto) 0.8, Eosinophils # (Auto) 0.4, Basophils # (Auto) 0.1, Nucleated Red Blood Cells % (auto) 0.0, Anion Gap 7L, Glomerular Filtration Rate > 60.0, Calcium Level 9.4 CBC/BMP Laboratory Tests 09/11/19 07:01 Microbiology Microbiology 09/08/19 Acid Fast Stain, Received Pending 09/08/19 Mycobacterial Culture, Received Pending 09/08/19 Fungal Smear, Received Pending 09/08/19 Fungal Culture, Received Pending 09/08/19 Gram Stain - Final, Complete 09/08/19 Anaerobic Culture - Final, Complete 09/08/19 Body Fluid Culture - Final, Complete AIDA RAMOS MD Sep 11, 2019 19:22
[2019-09-11 20:00] VITALS: BP 135/79
[2019-09-11] MEDS: TAMSULOSIN 0.4 MG CAP PO SCH (20:51)
[2019-09-11] MEDS: DIVALPROEX 250 MG TAB PO SCH (20:51)
[2019-09-12] VITALS (7 sets, daily range): BP systolic 112–142; BP diastolic 58–87
[2019-09-12] MEDS: PIPERACILLIN/TAZOBACTAM SOD 3.375 GM in D5W MINI-BAG PLUS 50 ML IV SCH ×4 (01:52→20:48)
[2019-09-12] MEDS: LEVALBUTEROL 1.25 MG/0.5 ML CONCENTRATE NEB NEB SCH ×2 (02:00→08:00)
[2019-09-12 05:23] LABS: BASO # 0.1 10^3/uL (0.0-0.2); BASO % 0.7 % (0.0-1.0); EOS # 0.5 10^3/uL (0.0-0.5); EOS % 5.6 % (0.0-3.0); HEMATOCRIT 40.5 % (42.0-52.0); LYMPH % 11.9 % (24.0-44.0); MEAN CORPUSCULAR HEMOGLOBIN 26.8 pg (27.0-33.0); MEAN CORPUSCULAR HGB CONC 32.1 g/dl (32.0-36.5); MEAN CORPUSCULAR VOLUME 83.5 fl (80.0-96.0); MONO # 1.1 10^3/uL (0.0-0.8); MONO % 13.6 % (0.0-5.0); NEUTROPHILS # 5.5 10^3/uL (1.5-8.5); NEUTROPHILS % 67.6 % (36.0-66.0); PLATELET COUNT, AUTOMATED 245 10^3/uL (150-450); RED BLOOD COUNT 4.85 10^6/uL (4.30-6.10); WHITE BLOOD COUNT 8.2 10^3/uL (4.0-10.0)
[2019-09-12] MEDS: SLF 3 ML SYR IV SCH ×3 (05:59→21:10)
[2019-09-12 06:00] LABS: BLOOD UREA NITROGEN 22 MG/DL (7-18); CALCIUM LEVEL 9.2 MG/DL (8.5-10.1); CARBON DIOXIDE LEVEL 25 MEQ/L (21-32); CHLORIDE LEVEL 108 MEQ/L (98-107); CREATININE FOR GFR 1.26 MG/DL (0.70-1.30); GLOMERULAR FILTRATION RATE > 60.0 (>56); GLUCOSE, FASTING 106 MG/DL (70-100); POTASSIUM SERUM 4.9 MEQ/L (3.5-5.1); SODIUM LEVEL 139 MEQ/L (136-145)
--- NOTE | 2019-09-12 07:58 | REP ---
Chest x-ray: Two views. History: Pleural effusion. Comparison study September 11, 2019. Findings: The amount of air projecting in the right lateral pleural cavity appears decreased. Pleural thickening and calcification persists. Right chest tube remains in place. Left lung remains clear. Electronically Signed by Carlos Marrufo MD 09/12/2019 07:50 A
[2019-09-12] MEDS: ADVAIR HFA 115/21MCG INHALER INH SCH (08:15)
[2019-09-12] MEDS: DOCUSATE SODIUM 100 MG CAP PO SCH ×2 (09:00→20:48)
[2019-09-12] MEDS: ASPIRIN 81 MG ENTERIC TAB PO SCH (09:00)
[2019-09-12] MEDS ORDERED: ADVAIR HFA 230/21MCG INHALER INH SCH (09:00)
[2019-09-12] MEDS: MOM 30ML SUSPENSION UDC PO SCH (09:00)
[2019-09-12] MEDS: lisinopriL 10 MG TAB PO SCH (09:02)
[2019-09-12] MEDS: PANTOPRAZOLE 40MG TAB (PROTONIX) PO SCH (09:02)
[2019-09-12] MEDS: HEPARIN SOD (PORCINE) 5000 UNITS/ML VIAL (J1644 PER 1000UNITS) SC SCH ×2 (09:03→20:49)
--- NOTE | 2019-09-12 11:14 | IPN ---
DATE: 09/12/2019 Mr. Abarca is doing quite well and is anxious as ever. He is very concerned about the differential diagnosis to include tuberculosis, and I have reassured him that the studies will come back and we will deal with it as we find out. It is unlikely he would have tuberculosis. His vital signs show a maximum temperature (Tmax) of 98.1, with a heart rate that ranges between 88-71, in a sinus rhythm, respiratory rate of 16-18, without the use of accessory muscles, who is 94% saturated on room air, and whose blood pressure is ranging between 112/62-151/77. His intake and output for the past 24 hours has been recorded as 1280 in and 1950 out for a negativity of 670 mL. He has put out 75 mL from the chest tube and there is no air leak. Weight today is 91.1 kg compared with 91 yesterday. On physical examination, his lungs show again expiratory wheezing. He states that he discontinued his nebulizer because it makes him nervous. Percussion note is full to the diaphragm. Cardiac exam shows the systolic murmur at the apex grade 2. I cannot feel his point of maximum impulse (PMI). S1 and S2 are normal. Abdomen is soft, nontender. Bowel sounds are positive. There is no hepatomegaly. No costovertebral angle (CVA) tenderness. Extremities show no pretibial edema. No calf tenderness. No differential swelling of the upper extremities. Skin is warm, dry and perfused, without cyanosis or mottling, including the nail beds and knees. Neck is supple. There is no jugular venous distention. No subcutaneous emphysema. Trachea is midline. Mouths shows the mucous membranes to be pink and moist. Lips and commissures without lesions. There is no thrush. Eyes show his pupils to be equal and reactive. Extraocular motion intact. Sclerae anicteric. Neurologic shows II-XII intact along with gross motor and gross sensation intact. Gait is also intact. Psychiatric shows him to be awake and alert, oriented times three but with underlying anxiety. INVESTIGATIONS: His white count is 8.2, with hemoglobin and hematocrit 13.0 and 40.5 respectively, with a platelet count of 245. Differential shows 67% neutrophils, 11% lymphocytes, 13% monocytes. There are no immature forms and no toxic granulations. His electrolytes are essentially normal with BUN and creatinine of 22 and 1.26 which is now normalizing. Glucose is 106, with a calcium of 9.2. His AVTAR screen is still pending, and his QuantiFERON Gold is still pending. Pathology does not show any malignant cells being mostly neutrophils and pus. IMPRESSION: 1. Recurrent pleural effusion with empyema. 2. Calcific pleural disease. 3. Entrapped lung. 4. History of inhalation and drug abuse as a teenager. 5. Nasal polyps. 6. Hemoptysis, resolved. 7. Hypertension. 8. Anxiety. 9. Transient renal insufficiency, resolving. 10. Exposure to pigeons, which is his hobby. PLAN AND DISCUSSION: I will take his chest tube off suction today with expectation of removing it tomorrow. We should keep him on antibiotics for at least 2 weeks. The space between the calcific leaves of the pleura will no doubtedly refill with fluid. The idea is to keep the fluid from becoming infected again. We will still await his QuantiFERON Gold.
[2019-09-12 14:20] LABS: ANTINUCLEAR ANTIBODIES DIRECT Negative (Negative)
--- NOTE | 2019-09-12 16:03 | IPNPDOC ---
Date Seen The patient was seen on 09/12/19. Progress Note HISTORY OF PRESENT ILLNESS: 59-year-old male with past medical history of hypertension and bipolar depression, presents from PCPs office for evaluation of pleural effusion/possible empyema. Patient had a pleural effusion in 2003 which was drained and thought to have been secondary to pneumonia. He felt well up until a few weeks ago when he started experiencing similar symptoms, underwent a recent increases in the outpatient setting on 08/25/2019, which was exudative but no organisms grew on culture. He has been treated with Augmentin since then, started having some hemoptysis yesterday, went to the emergency department and was discharged home with follow up with primary care physician. He went to see his PCP today who took a sputum sample, which was also bloody and sent to the emergency department for admission. Patient is otherwise asymptomatic, denies any shortness of breath, fever, nausea, vomiting, chest pain, abdominal pain, diarrhea or constipation. His only symptom at this time is hemoptysis that started yesterday. 09/09/19 s/p chest tube placement yesterday, tPA was inserted into pleural space today to augment fluid removal. Patient comfortable, reports significant improvement in SOB, without any complaints at this time. He denies any chest pain, N/V/D or abdominal pain. Chest tube w/ serosanguinous drainage, exudative. 09/10/19 Patient comfortable in the morning, having minimal chest discomfort, denies any dyspnea, cough, not requiring medication for pain control. 09/11/19 No acute events overnight, comfortable, denies any dyspnea or chest pain, Chest tube with small amount of serosanguinous drainage overnight, no complaints at this time. 09/12/19 Patient comfortable, chest tube with minimal serosanguineous output, denies any shortness of breath or chest pain. Chest tube has now been clamped. 10 point review of system is negative except for above PHYSICAL EXAMINATION: VITAL SIGNS: Please see below. GENERAL: No distress HEENT: Normocephalic, atraumatic, moist mucous membranes NECK: Supple CARDIOVASCULAR EXAMINATION: S1, S2, no murmurs RESPIRATORY EXAMINATION: Right sided chest tube, rhonchi on R side w/ diminished breath sounds, no wheezing ABDOMINAL EXAMINATION: Soft, nontender, nondistended, positive bowel sounds EXTREMITIES: Range of motion intact SKIN: No rash NEUROLOGICAL EXAMINATION: Alert and oriented 3, no focal deficits PSYCHIATRIC EXAMINATION: Calm and cooperative LABORATORY DATA: See below. IMAGING: CT chest showing right pleural effusion with calcification MICROBIOLOGY: Please see below. ASSESSMENT: 59-year-old male with past mental history of bipolar depression and hypertension who is been treated in the outpatient setting for possible empyema, presents today with hemoptysis. PLAN: 1. Possible empyema. s/p chest tube & tPA into pleural space, chest tube draining serosanguinous fluid, clamped in the morning, pleural fluid exudative, cytology negative for malignancy, pleural fluid studies consistent with empyema, although no organisms were seen on Gram stain and cultures have been negative. Rheumatological workup negative, QuantiFERON goal pending, continue Zosyn. 2. АННА - possibly due to NSAIDS and Antibiotics, resolved w/ IV fluids, will monitor. 3. Bipolar depression. Continue Depakote 4. Hypertension. continue Lisinopril 5. BPH. Continue Flomax DVT prophylaxis: Heparin SubQ GI prophylaxis: PPI VS, I&O, 24H, Fishbone Vital Signs/I&O Vital Signs Date Time Temp Pulse Resp B/P (MAP) Pulse Ox O2 Delivery O2 Flow Rate FiO2 09/12/19 12:00 97.8 90 18 135/79 (97) 98 Room Air 09/08/19 16:45 2.0 I&O- Last 24 Hours up to 6 AM 09/12/19 06:00 Intake Total 1330 ml Output Total 1655 ml Balance -325 ml Laboratory Data 24H LABS Laboratory Tests 2 09/12/19 05:05: Immature Granulocyte % (Auto) 0.6, Neutrophils (%) (Auto) 67.6H, Lymphocytes (%) (Auto) 11.9L, Monocytes (%) (Auto) 13.6H, Eosinophils (%) (Auto) 5.6H, Basophils (%) (Auto) 0.7, Neutrophils # (Auto) 5.5, Lymphocytes # (Auto) 1.0L, Monocytes # (Auto) 1.1H, Eosinophils # (Auto) 0.5, Basophils # (Auto) 0.1, Nucleated Red Blood Cells % (auto) 0.0, Anion Gap 6L, Glomerular Filtration Rate > 60.0, Calcium Level 9.2 CBC/BMP Laboratory Tests 09/12/19 05:05 Microbiology Microbiology 1/7/20 Acid Fast Stain - Final, Resulted 09/12/19 Mycobacterial Culture, Resulted Pending 09/12/19 Gram Stain - Final, Resulted 09/12/19 Sputum Culture, Resulted Pending 09/08/19 Acid Fast Stain, Received Pending 09/08/19 Mycobacterial Culture, Received Pending 09/08/19 Fungal Smear, Received Pending 09/08/19 Fungal Culture, Received Pending 09/08/19 Gram Stain - Final, Complete 09/08/19 Anaerobic Culture - Final, Complete 09/08/19 Body Fluid Culture - Final, Complete AIDA RAMOS MD Sep 12, 2019 16:03
[2019-09-12] MEDS: DIVALPROEX 250 MG TAB PO SCH (20:49)
[2019-09-12] MEDS: TAMSULOSIN 0.4 MG CAP PO SCH (20:49)
[2019-09-13] MEDS: PIPERACILLIN/TAZOBACTAM SOD 3.375 GM in D5W MINI-BAG PLUS 50 ML IV SCH ×4 (01:46→20:13)
[2019-09-13 04:00] VITALS: BP 101/54
[2019-09-13] MEDS: SLF 3 ML SYR IV SCH ×3 (05:38→21:03)
[2019-09-13 05:57] LABS: BASO # 0.1 10^3/uL (0.0-0.2); EOS # 0.4 10^3/uL (0.0-0.5); EOS % 6.3 % (0.0-3.0); HEMATOCRIT 42.4 % (42.0-52.0); HEMOGLOBIN 13.3 g/dl (13.5-17.5); LYMPH # 0.7 10^3/uL (1.5-5.0); LYMPH % 11.8 % (24.0-44.0); MEAN CORPUSCULAR HEMOGLOBIN 26.5 pg (27.0-33.0); MEAN CORPUSCULAR HGB CONC 31.4 g/dl (32.0-36.5); MEAN CORPUSCULAR VOLUME 84.5 fl (80.0-96.0); MONO # 1.3 10^3/uL (0.0-0.8); MONO % 20.9 % (0.0-5.0); NEUTROPHILS # 3.6 10^3/uL (1.5-8.5); NEUTROPHILS % 58.9 % (36.0-66.0); PLATELET COUNT, AUTOMATED 235 10^3/uL (150-450); RED BLOOD COUNT 5.02 10^6/uL (4.30-6.10); WHITE BLOOD COUNT 6.2 10^3/uL (4.0-10.0)
[2019-09-13 06:16] LABS: CREATININE FOR GFR 1.32 MG/DL (0.70-1.30); GLOMERULAR FILTRATION RATE 59.5 (>56); POTASSIUM SERUM 5.2 MEQ/L (3.5-5.1)
[2019-09-13 08:00] VITALS: BP 131/77
[2019-09-13] MEDS: ADVAIR HFA 230/21MCG INHALER INH SCH ×2 (08:09→17:48)
--- NOTE | 2019-09-13 08:10 | REP ---
Chest x-ray: Two views. History: Pleural effusion. Comparison chest x-ray: September 12, 2019. Findings: Right chest tube remains in place. There is a small quantity of air in the pleural cavity on the right adjacent to the pleural chronic pleural thickening and pleural calcification. The left lung remains clear. No significant change from the previous day's radiograph. Electronically Signed by Carlos Marrufo MD 09/13/2019 08:01 A
[2019-09-13] MEDS: ASPIRIN 81 MG ENTERIC TAB PO SCH (08:54)
[2019-09-13] MEDS: DOCUSATE SODIUM 100 MG CAP PO SCH ×2 (08:54→20:13)
[2019-09-13] MEDS: lisinopriL 10 MG TAB PO SCH (08:55)
[2019-09-13] MEDS: PANTOPRAZOLE 40MG TAB (PROTONIX) PO SCH (08:55)
[2019-09-13] MEDS: MOM 30ML SUSPENSION UDC PO SCH (08:55)
[2019-09-13] MEDS: HEPARIN SOD (PORCINE) 5000 UNITS/ML VIAL (J1644 PER 1000UNITS) SC SCH ×3 (08:56→20:18)
[2019-09-13 12:00] VITALS: BP 134/88
--- NOTE | 2019-09-13 12:53 | IPNPDOC ---
Subjective Date Seen The patient was seen on 09/13/19. Subjective Chief Complaint/HPI Patient is comfortable in no distress. Chest tube in place General: Denies: ROS Unobtainable, Chills, Night Sweats, Fatigue, Malaise, Normal Appetite, Other Symptoms Constitutional: Denies: Chills, Fever, Malaise, Night Sweats, Weakness, Fatigue, Weight Loss, Lethargy, Other Skin: Denies: Rash, Lesions, Jaundice, Bruising, Itching, Dry, Breakdown, Nail Changes, Other Pulmonary: Denies: Dyspnea, Cough, Pleuritic Chest Pain, Other Symptoms Cardiovascular: Denies: Chest Pain, Palpitations, Orthopnea, Paroxysmal Noc. Dyspnea, Edema, Lt Headedness, Other Symptoms Gastrointestinal: Denies: Nausea, Vomiting, Abdominal Pain, Diarrhea, Constipation Musculoskeletal: Denies: Neck Pain, Back Pain, Shoulder Pain, Arm Pain, Hand Pain, Leg Pain, Foot Pain, Joint Pain, Muscle Pain, Spasms, Other Symptoms Neurological: Denies: Weakness, Numbness, Incoordination, Change in speech, Confusion, Seizures, Other Symptoms Objective Physical Examination General Exam: Positive: Alert, Cooperative Eye Exam: Positive: PERRLA, Conjunctiva & lids normal Neck Exam: Positive: Supple Chest Exam: Positive: Clear to auscultation, Normal air movement Heart Exam: Positive: Rate Normal, Normal S1, Normal S2 Abdomen Exam: Positive: Normal bowel sounds, Soft Extremity Exam: Positive: Normal pulses Skin Exam: Positive: Nl turgor and temperature Neuro Exam: Positive: Strength at 5/5 X4 ext, Cranial Nerves 3-12 NL Assessment /Plan Problems (1) Empyema of lung Status: Acute Problem Text: s/p chest tube & tPA into pleural space, chest tube draining serosanguinous fluid, clamped in the morning, pleural fluid exudative, cytology negative for malignancy, pleural fluid studies consistent with empyema, although no organisms were seen on Gram stain and cultures have been negative. Rheumatological workup negative, QuantiFERON goal pending, continue Zosyn. Chest tube, most likely to be removed today and discharge once cleared from Dr. Clark (2) HTN (hypertension) Status: Chronic Problem Text: At the present meds (3) Bipolar depression Status: Chronic Problem Text: Continue present meds (4) АННА (acute kidney injury) Status: Acute Problem Text: possibly due to NSAIDS and Antibiotics, resolved w/ IV fluids Repeat labs in a.m. Plan/VTE VTE Prophylaxis Ordered?: Yes VS, I&O, 24H, Fishbone Vital Signs/I&O Vital Signs Date Time Temp Pulse Resp B/P (MAP) Pulse Ox O2 Delivery O2 Flow Rate FiO2 09/13/19 08:55 131/77 09/13/19 08:00 97.7 93 16 97 Room Air 09/08/19 16:45 2.0 I&O- Last 24 Hours up to 6 AM 09/13/19 06:00 Intake Total 1420 ml Output Total 2345 ml Balance -925 ml Laboratory Data 24H LABS Laboratory Tests 2 09/13/19 05:22: Immature Granulocyte % (Auto) 1.1, Neutrophils (%) (Auto) 58.9, Lymphocytes (%) (Auto) 11.8L, Monocytes (%) (Auto) 20.9H, Eosinophils (%) (Auto) 6.3H, Basophils (%) (Auto) 1.0, Neutrophils # (Auto) 3.6, Lymphocytes # (Auto) 0.7L, Monocytes # (Auto) 1.3H, Eosinophils # (Auto) 0.4, Basophils # (Auto) 0.1, Nucleated Red Blood Cells % (auto) 0.0, Anion Gap 7L, Glomerular Filtration Rate 59.5, Calcium Level 9.0 CBC/BMP Laboratory Tests 09/13/19 05:22 Microbiology Microbiology 09/12/19 Acid Fast Stain - Final, Resulted 09/12/19 Mycobacterial Culture, Resulted Pending 09/12/19 Gram Stain - Final, Resulted 09/12/19 Sputum Culture, Resulted Pending 09/08/19 Acid Fast Stain, Received Pending 09/08/19 Mycobacterial Culture, Received Pending 09/08/19 Fungal Smear, Received Pending 09/08/19 Fungal Culture, Received Pending 09/08/19 Gram Stain - Final, Complete 09/08/19 Anaerobic Culture - Final, Complete 09/08/19 Body Fluid Culture - Final, Complete DEANA KELLY MD Sep 13, 2019 12:53
--- NOTE | 2019-09-13 12:55 | IPN ---
DATE: 09/13/2019 Mr. Grey has had a relatively stable 24 hours. He is still coughing. His pain is well controlled at the chest tube insertion site. His vital signs show a maximum temperature (t-max) of 98.9 with a heart rate that ranges between 92 and 80 in a sinus rhythm, respiratory rate of 18 to 20 without the use of accessory muscles, who is 96% on saturated on room air, and whose blood pressure is ranging between 142/63 to 101/54. His intake and output the past 24 hours has been recorded as 1420 in and 2030 out for a negativity of 600 mL. He has put 55 mL out of the chest tube and there is no air leak. His weight today is 88 kg compared to 91.1 kg yesterday. PHYSICAL EXAMINATION: LUNGS: After removal of the chest tube, he has coarse rhonchi on either side, which do not completely clear with coughing. I do hear a likely succussion splash or a pleural friction rub. Percussion note is full to the diaphragm. CARDIAC EXAM: Without murmurs, clicks, gallops or rubs. I cannot feel his point of maximum impulse (PMI). S1, S2 are normal. ABDOMEN: Soft, nontender. Bowel sounds positive. There is no hepatomegaly. No costovertebral angle tenderness. EXTREMITIES: Show no pretibial edema. No calf tenderness. No differential swelling of the upper extremities. SKIN: Warm, dry and perfused without cyanosis or mottling, including that of the nail beds and knees. NECK: Supple. There is no jugular venous distention. No subcutaneous emphysema. Trachea is midline. MOUTH: Shows his mucous membranes to be pink and moist. Lips and commissures without lesions. There is no thrush. EYES: Show his pupils to be equal and reactive. Extraocular motion intact. Sclerae anicteric. NEUROLOGIC: Shows II through XII intact with gross motor and gross sensation intact. Gait is intact. PSYCHIATRIC: Shows him to be awake and alert, oriented times three with appropriate mood and affect and conversational. He is anxious. LABORATORY DATA: His white count today is 6.2 with a hemoglobin and hematocrit of 13.3 and 42.4, essentially unchanged from yesterday with a platelet count of 235 and stable. Differential shows 58% neutrophils, 11% lymphocytes, 20% monocytes. There are no immature forms and no toxic granulations. His electrolytes show a marginally elevated potassium at 5.2. BUN and creatinine are 22 and 1.32, respectively, slightly up from yesterday's of 22 and 1.26. QuantiFERON Gold test is negative. AVTAR screen is negative. Sputum shows a few gram-negative rods and moderate gram-positive cocci in pairs and chains. Cultures are pending. Sputum for AFB is negative. His chest x-ray today shows a thin stripe of air between two leaves of calcifications in the lower hemithorax. Chest tube is in good place. I see no infiltrates. There is a posterior air space that can be seen on the lateral film, which measures 1.2 cm in depth x 7 cm in length. IMPRESSION: 1. Empyema. 2. Calcific pleural disease. 3. Entrapped lung. 4. History of inhalation drug abuse as a teenager. 5. Exposure to pigeons, which is his hobby. 6. Nasal polyps. 7. Hemoptysis, resolved. 8. Hypertension. 9. Anxiety. 10. Transient renal insufficiency, continuing. PLAN/DISCUSSION: I am going to remove his chest tubes today. He has never been exposed to tuberculosis, the pleural calcifications are not secondary to tuberculosis. Pathology shows no malignancy. His sputum is still pending and showing moderate gram-positive cocci in chains and clusters. We will await those results to choose his outpatient antibiotics. I do think that the pleural calcifications at this point in time have got to be assigned to chronic infection and empyema over a number of years as he has had this pleural effusion for quite a long time. I suspect he developed a pneumonia a couple of months ago and it finally infected his pleural space. That is now appropriately drained. I recommend that we keep him on antibiotics for at least 2 weeks. Our choice should be guided by the sputum cultures. If all goes well, I can see no reason why he could not be discharged tomorrow.
[2019-09-13 16:00] VITALS: BP 126/70
[2019-09-13 20:00] VITALS: BP 153/79
[2019-09-13] MEDS: DIVALPROEX 250 MG TAB PO SCH (20:14)
[2019-09-13] MEDS: TAMSULOSIN 0.4 MG CAP PO SCH (20:14)
[2019-09-13 23:59] VITALS: BP 101/57
[2019-09-14] MEDS: PIPERACILLIN/TAZOBACTAM SOD 3.375 GM in D5W MINI-BAG PLUS 50 ML IV SCH ×2 (01:37→08:51)
[2019-09-14 04:00] VITALS: BP 129/74
[2019-09-14] MEDS: SLF 3 ML SYR IV SCH (05:01)
[2019-09-14 06:02] LABS: BASO # 0.1 10^3/uL (0.0-0.2); BASO % 0.9 % (0.0-1.0); EOS # 0.5 10^3/uL (0.0-0.5); HEMATOCRIT 39.8 % (42.0-52.0); HEMOGLOBIN 12.5 g/dl (13.5-17.5); LYMPH # 0.9 10^3/uL (1.5-5.0); MEAN CORPUSCULAR HEMOGLOBIN 26.5 pg (27.0-33.0); MEAN CORPUSCULAR HGB CONC 31.4 g/dl (32.0-36.5); MEAN CORPUSCULAR VOLUME 84.5 fl (80.0-96.0); MONO # 1.6 10^3/uL (0.0-0.8); MONO % 25.2 % (0.0-5.0); NEUTROPHILS # 3.3 10^3/uL (1.5-8.5); PLATELET COUNT, AUTOMATED 216 10^3/uL (150-450); RED BLOOD COUNT 4.71 10^6/uL (4.30-6.10); WHITE BLOOD COUNT 6.4 10^3/uL (4.0-10.0)
[2019-09-14 06:23] LABS: ALBUMIN 2.7 GM/DL (3.2-5.2); BILIRUBIN,TOTAL 0.2 MG/DL (0.2-1.0); CALCIUM LEVEL 8.2 MG/DL (8.5-10.1); CREATININE FOR GFR 1.32 MG/DL (0.70-1.30); GLOMERULAR FILTRATION RATE 59.5 (>56); POTASSIUM SERUM 4.7 MEQ/L (3.5-5.1); TOTAL PROTEIN 6.6 GM/DL (6.4-8.2)
[2019-09-14 07:26] VITALS: BP 130/82
[2019-09-14] MEDS: ADVAIR HFA 230/21MCG INHALER INH SCH (07:28)
[2019-09-14] MEDS: DOCUSATE SODIUM 100 MG CAP PO SCH (08:51)
[2019-09-14 08:52] VITALS: BP 130/85
[2019-09-14] MEDS: MOM 30ML SUSPENSION UDC PO SCH (08:52)
[2019-09-14] MEDS: ASPIRIN 81 MG ENTERIC TAB PO SCH (08:52)
[2019-09-14] MEDS: PANTOPRAZOLE 40MG TAB (PROTONIX) PO SCH (08:52)
[2019-09-14] MEDS: lisinopriL 10 MG TAB PO SCH (08:52)
[2019-09-14] MEDS: HEPARIN SOD (PORCINE) 5000 UNITS/ML VIAL (J1644 PER 1000UNITS) SC SCH (08:52)
[2019-09-14] MEDS ORDERED: ADVA230A INH (09:39)
[2019-09-14] MEDS ORDERED: PERCOCET PO (09:39)
--- NOTE | 2019-09-14 11:28 | REP ---
Chest x-ray: Two views. History: Pleural effusion. Comparison study: September 13, 2019. Findings: Monitoring electrodes are seen. The right-sided chest tube has been removed. There is a small amount of air and fluid with a small air-fluid level in the pleural cavities surrounded by pleural thickening and calcification. Left lung remains clear. Electronically Signed by Carlos Marrufo MD 09/14/2019 08:21 A
--- NOTE | 2019-09-14 12:12 | DS.PDOC ---
Discharge Summary General Date of Admission Sep 08, 2019 at 12:54 Date of Discharge 09/14/19 Discharge Summary PROCEDURES PERFORMED DURING STAY: None. ADMITTING DIAGNOSES: 1. Empyema of lung. DISCHARGE DIAGNOSES: 1. Empyema of lung, hypertension, acute kidney injury. COMPLICATIONS/CHIEF COMPLAINT: Empyema Of Lung. HISTORY OF PRESENT ILLNESS: 59-year-old male with past medical history of hypertension and bipolar depression, presents from PCPs office for evaluation of pleural effusion/possible empyema. Patient had a pleural effusion in 2003 which was drained and thought to have been secondary to pneumonia. He felt well up until a few weeks ago when he started experiencing similar symptoms, underwent a recent increases in the outpatient setting on 08/25/2019, which was exudative but no organisms grew on culture. He has been treated with Augmentin since then, started having some hemoptysis yesterday, went to the emergency department and was discharged home with follow up with primary care physician. He went to see his PCP today who took a sputum sample, which was also bloody and sent to the emergency department for admission. Patient is otherwise asymptomatic, denies any shortness of breath, fever, nausea, vomiting, chest pain, abdominal pain, diarrhea or constipation. His only symptom at this time is hemoptysis that started yesterday.. HOSPITAL COURSE: Empyema of lung s/p chest tube & tPA i to pleural space, chest tube draining serosanguinous fluid, clamped in the morning, pleural fluid exudative, cytology negative for malignancy, pleural fluid studies consistent with empyema, although no organisms were seen on Gram stain and cultures have been negative. Rheumatological workup negative, QuantiFERON goal pending, continue Zosyn. Chest tube was removed yesterday by Dr. Clark And repeat chest x-ray done which was essentially within normal limits Dr. Clark called me and informed to discharge patient home and follow with him and Dr. Briceno in 2 weeks Continue home meds and home antibiotics Patient's АННА has resolved with IV hydration and was most likely secondary to multiple meds She will follow up with Dr. Briceno's outpatient . DISCHARGE MEDICATIONS: Please see below. ALLERGIES: Please see below. PHYSICAL EXAMINATION ON DISCHARGE: VITAL SIGNS: Please see below. GENERAL: Within normal limits HEENT: PERRLA. Extraocular muscles intact NECK: Supple CARDIOVASCULAR EXAMINATION: S1, S2, regular RESPIRATORY EXAMINATION: Clear to A&P ABDOMINAL EXAMINATION: Benign EXTREMITIES: Negative clubbing, cyanosis, edema SKIN: Within normal limits NEUROLOGICAL EXAMINATION: . No focal motor sensory deficit PSYCHIATRIC EXAMINATION: Within normal limits LABORATORY DATA: Please see below. IMAGING: Chest x-ray :Monitoring electrodes are seen. The right-sided chest tube has been removed. There is a small amount of air and fluid with a small air-fluid level in the pleural cavities surrounded by pleural thickening and calcification. Left lung remains clear. PROGNOSIS: Good ACTIVITY: As tolerated. DIET: As tolerated DISCHARGE PLAN: With Dr. Clark and Dr. Briceno as outpatient in 2 weeks DISPOSITION: . Home DISCHARGE INSTRUCTIONS: 1. As per discharge instructions. ITEMS TO FOLLOWUP ON ON OUTPATIENT: 1. As above. DISCHARGE CONDITION: Stable. TIME SPENT ON DISCHARGE: 38 minutes. Vital Signs/I&Os Vital Signs Date Time Temp Pulse Resp B/P (MAP) Pulse Ox O2 Delivery O2 Flow Rate FiO2 09/14/19 08:52 130/85 09/14/19 07:26 98.0 74 16 97 Room Air 09/08/19 16:45 2.0 I&O- Last 24 Hours up to 6 AM 09/14/19 06:00 Intake Total 2420 ml Output Total 325 ml Balance 2095 ml Laboratory Data Labs 24H Laboratory Tests 2 09/14/19 05:39: Immature Granulocyte % (Auto) 0.9, Neutrophils (%) (Auto) 52.0, Lymphocytes (%) (Auto) 14.0L, Monocytes (%) (Auto) 25.2H, Eosinophils (%) (Auto) 7.0H, Basophils (%) (Auto) 0.9, Neutrophils # (Auto) 3.3, Lymphocytes # (Auto) 0.9L, Monocytes # (Auto) 1.6H, Eosinophils # (Auto) 0.5, Basophils # (Auto) 0.1, Nucleated Red Blood Cells % (auto) 0.0 09/14/19 05:40: Anion Gap 6L, Glomerular Filtration Rate 59.5, Calcium Level 8.2L, Total Bilirubin 0.2, Aspartate Amino Transf (AST/SGOT) 20, Alanine Aminotransferase (ALT/SGPT) 32, Alkaline Phosphatase 48, Total Protein 6.6, Albumin 2.7L, Albumin/Globulin Ratio 0.69L CBC/BMP Laboratory Tests 09/14/19 05:39 09/14/19 05:40 Microbiology Microbiology 09/12/19 Acid Fast Stain - Final, Resulted 09/12/19 Mycobacterial Culture, Resulted Pending 09/12/19 Gram Stain - Final, Resulted 09/12/19 Sputum Culture, Resulted Pending 09/08/19 Acid Fast Stain, Received Pending 09/08/19 Mycobacterial Culture, Received Pending 09/08/19 Fungal Smear, Received Pending 09/08/19 Fungal Culture, Received Pending 09/08/19 Gram Stain - Final, Complete 09/08/19 Anaerobic Culture - Final, Complete 09/08/19 Body Fluid Culture - Final, Complete Discharge Medications Scheduled Amoxicillin/Potassium Clav (Amox-Clav 500-125 mg Tablet) 1 Each Tablet, 1 TAB PO BID, (Reported) FILLED 09/04/19 FOR 10 DAYS Aspirin (Aspirin EC) 81 Mg Tablet.dr, 81 MG PO DAILY, (Reported) Divalproex Sodium (Divalproex Sodium) 250 Mg Tablet.dr, 250 MG PO QHS, (Reported) Fluticasone Propion/Salmeterol (Fluticasone-Salmeterol 113-14) 1 Each Aer.pow.ba, 1 PUFF INH BID, (Reported) Fluticasone Propion/Salmeterol (Advair Hfa 230-21 Mcg Inhaler) 12 Gm Hfa.aer.ad, 2 PUFF INH RBID@0900,1700 Lisinopril (Lisinopril) 10 Mg Tablet, 10 MG PO DAILY, (Reported) Tamsulosin Hcl (Tamsulosin HCl) 0.4 Mg Capsule, 0.4 MG PO QHS, (Reported) Allergies Coded Allergies: haloperidol (Verified Adverse Reaction, Unknown, MUSCLE SPASM, 09/08/19) DEANA KELLY MD Sep 14, 2019 12:12
== END 2019-09-14 13:00 | disposition home or self-care (01) | DRG 137 ==
LOC: M ED 10:25 → M ED INP 12:54 → ENRESERV 13:19 → M MSPAV 14:12 → M PCU 15:44
PROVIDERS: ADMIT Internal Medicine; ATTEND Internal Medicine
PROC: 0W9900Z Drainage of Right Pleural Cavity with Drainage Device, Open Approach (ICD-10-PCS; principal; 2019-09-08)
PROC: 3E0L3GC Introduction of Other Therapeutic Substance into Pleural Cavity, Percutaneous Approach (ICD-10-PCS; 2019-09-09)
DX: J86.9 Pyothorax without fistula (principal); N17.9 Acute kidney failure, unspecified; J90 Pleural effusion, not elsewhere classified; F31.9 Bipolar disorder, unspecified; I10 Essential (primary) hypertension; N40.0 Benign prostatic hyperplasia without lower urinary tract symptoms; E78.5 Hyperlipidemia, unspecified; Z87.891 Personal history of nicotine dependence; Z79.82 Long term (current) use of aspirin; Z79.899 Other long term (current) drug therapy; Z88.8 Allergy status to other drugs, medicaments and biological substances; J33.9 Nasal polyp, unspecified; F41.9 Anxiety disorder, unspecified; R04.2 Hemoptysis; T39.395A Adverse effect of other nonsteroidal anti-inflammatory drugs [NSAID], initial encounter; J94.8 Other specified pleural conditions; J44.9 Chronic obstructive pulmonary disease, unspecified; Z88.0 Allergy status to penicillin

== ENCOUNTER 2019-09-25 10:49 | Inpatient (IN) | payer OTHER ==
[~2019-09-25] VITALS: Ht 170.2 cm; Wt 87.7 kg
[~2019-09-25 10:49] MED LIST changes: +ADVA230A INH; +AMOX500T2 PO; +PERCOCET PO
[2019-09-25] MEDS ORDERED: FLUT1INH3 INH (11:04)
[2019-09-25] MEDS ORDERED: OXYC1TAB23 (11:04)
[2019-09-25] MEDS ORDERED: LUBR1DRO OU (12:45)
[2019-09-25] MEDS ORDERED: PIPERACILLIN/TAZOBACTAM SOD 3.375 GM in D5W MINI-BAG PLUS 50 ML IV ONE (12:45)
[2019-09-25] MEDS ORDERED: ACETAMINOPHEN TAB 650MG DOSE (2X325MG) PO PRN (13:15)
[2019-09-25 13:29] LABS: BASO % 0.4 % (0.0-1.0); EOS # 0.3 10^3/uL (0.0-0.5); HEMATOCRIT 48.2 % (42.0-52.0); HEMOGLOBIN 14.9 g/dl (13.5-17.5); LYMPH # 1.5 10^3/uL (1.5-5.0); LYMPH % 13.9 % (24.0-44.0); MEAN CORPUSCULAR HEMOGLOBIN 25.9 pg (27.0-33.0); MEAN CORPUSCULAR HGB CONC 30.9 g/dl (32.0-36.5); MEAN CORPUSCULAR VOLUME 83.8 fl (80.0-96.0); MONO # 0.9 10^3/uL (0.0-0.8); MONO % 8.2 % (0.0-5.0); NEUTROPHILS # 7.9 10^3/uL (1.5-8.5); PLATELET COUNT, AUTOMATED 340 10^3/uL (150-450); RED BLOOD COUNT 5.75 10^6/uL (4.30-6.10); WHITE BLOOD COUNT 10.7 10^3/uL (4.0-10.0)
--- NOTE | 2019-09-25 13:55 | HPEPDOC ---
[facility] Medical History & Physical Date of Admission Sep 25, 2019 Date of Service: Sep 25, 2019 History and Physical CHIEF COMPLAINT: Dyspnea on exertion HISTORY OF PRESENT ILLNESS: Patient is 59M with PMH recurrent pleural effusion/empyema s/p chest tube placement recently admitted 09/08 and discharged on 09/15 presented to the ER with complaints of "feeling strange" needing antibiotics. He has been following with pulmonology Dr. Sebastian as an outpatient for monitoring, was prescribed PO antibiotics and stated multiple different complaints from it and did not take it and states that he knows the IV antibiotics would help him. He showed up at his pulmonology's office today and was sent to the ER. In ER, patient appear comfortable and not in any discomfort. He stated that he was here recently and was discharged but he feels off but occasionally, stated that he does get some SOB when exertion but otherwise denies any other complaints including chest pain, SOB at rest, fever, chills, nausea, vomiting. Recent XR from outside facility shows air fluid level in the mid R hemithorax suggestive of hydropneumothorax with atelectasis/infiltrates. Patient to be admitted for Abx and further evaluation of pleural effusion. PAST MEDICAL HISTORY: Refer to [facility] PAST SURGICAL HISTORY: Chest tube placement Hernia repair Appendectomy SOCIAL HISTORY: Former smoker. Denies alcohol or illicit drug use. FAMILY HISTORY: Reviewed and noncontributory ALLERGIES: Please see below. REVIEW OF SYSTEMS: 10 point review of system negative except as stated in HPI HOME MEDICATIONS: Please see below. PHYSICAL EXAMINATION: General: No acute distress, Alert, disorganized in thoughts and speech, tangential Eyes: Normal sclera, EOMI HENT: Atraumatic Cardiovascular: Normal rate, normal rhythm. Pulmonary: Decrease breath sounds in R. lung base. No wheezing. GI: Soft, nontender, nondistended Skin: Warm and dry Neuro: CN grossly intact. No focal deficits. Strengths equal b/l. Psych: oriented x 3 LABORATORY DATA: See below. IMAGING: None MICROBIOLOGY: Please see below. ASSESSMENT AND PLAN: 1. hx recurrent pleural effusion/empyema - s/p chest tube drainage recently admitted this month. - Start on IV Zosyn. Obtained basic bloodwork, blood cultures. - Not clinically septic or ill at this time. - Obtain CT chest to evaluate changes from prior. - consult pulm if does not improve or clinical status worsens. 2. HTN - c/w lisinopril. 3. COPD - nebs PRN. - resume home inhaler. 4. Bipolar disorder - resume home med. DVT ppx: Lovenox and KYLE Code status: Full code Vital Signs Vital Signs Date Time Temp Pulse Resp B/P (MAP) Pulse Ox O2 Delivery O2 Flow Rate FiO2 09/25/19 11:23 18 09/25/19 10:51 97.3 72 94 Room Air Laboratory Data Labs 24H Laboratory Tests 2 09/25/19 13:07: CBC/BMP Microbiology Microbiology 09/25/19 Blood Culture, Received Pending 09/25/19 Blood Culture, Received Pending Home Medications Scheduled Aspirin (Aspirin EC) 81 Mg Tablet.dr, 81 MG PO DAILY Divalproex Sodium (Divalproex Sodium) 250 Mg Tablet.dr, 250 MG PO QHS Fluticasone Propion/Salmeterol (Fluticasone-Salmeterol 232-14) 1 Each Aer.pow.ba, 2 PUFFS INH BID Lisinopril (Lisinopril) 10 Mg Tablet, 10 MG PO DAILY Tamsulosin Hcl (Tamsulosin HCl) 0.4 Mg Capsule, 0.4 MG PO QHS Scheduled PRN Carboxymethylcellulos/Glycerin (Lubricant 0.5-0.9% Eye Drops) 15 Ml Drops, 1 DROP OU QID PRN for DRY EYES Allergies Coded Allergies: amoxicillin (Verified Adverse Reaction, Unknown, N/V, 09/25/19) clavulanic acid (Verified Adverse Reaction, Unknown, N/V, 09/25/19) haloperidol (Verified Adverse Reaction, Unknown, MUSCLE SPASM, 09/08/19) A-FIB/CHADSVASC A-FIB History Current/History of A-Fib/PAF?: No MAGO MURILLO MD Sep 25, 2019 13:55
[2019-09-25 13:59] LABS: ALBUMIN 3.6 GM/DL (3.2-5.2); ALT/SGPT 26 U/L (12-78); BILIRUBIN,TOTAL 0.5 MG/DL (0.2-1.0); BLOOD UREA NITROGEN 20 MG/DL (7-18); CALCIUM LEVEL 8.9 MG/DL (8.5-10.1); CARBON DIOXIDE LEVEL 22 MEQ/L (21-32); CHLORIDE LEVEL 108 MEQ/L (98-107); CREATININE FOR GFR 1.18 MG/DL (0.70-1.30); GLOMERULAR FILTRATION RATE > 60.0 (>56); GLUCOSE, FASTING 83 MG/DL (70-100); POTASSIUM SERUM 5.5 MEQ/L (3.5-5.1); SODIUM LEVEL 138 MEQ/L (136-145); TOTAL PROTEIN 8.1 GM/DL (6.4-8.2)
[2019-09-25] MEDS ORDERED: IPRATROPIUM 0.5MG/ALBUTEROL 2.5MG INH SOL UD 3ML (DUONEB)(J7620) NEB PRN (14:00)
[2019-09-25] MEDS: ENOXAPARIN 40 MG/0.4 ML SYRINGE (J1650) SC SCH (18:26)
[2019-09-25] MEDS: PIPERACILLIN/TAZOBACTAM SOD 4.5 GM in D5W MINI-BAG PLUS 50 ML IV SCH (20:24)
[2019-09-25] MEDS: DIVALPROEX 250 MG TAB PO SCH (20:24)
[2019-09-25] MEDS: TAMSULOSIN 0.4 MG CAP PO SCH (20:25)
[2019-09-25] MEDS ORDERED: ENTER DRUG NAME HERE (PATIENT'S OWN MED) INH SCH (21:00)
[2019-09-25] MEDS: ADVAIR HFA 230/21MCG INHALER INH SCH (21:49)
[2019-09-25 22:00] VITALS: BP 105/66
[2019-09-26] MEDS: PIPERACILLIN/TAZOBACTAM SOD 4.5 GM in D5W MINI-BAG PLUS 50 ML IV SCH ×4 (02:26→20:08)
--- NOTE | 2019-09-26 03:46 | REP ---
Clinical: Pleural effusion. Technique: Axial noncontrast images from the thoracic inlet to the upper abdomen with coronal and sagittal re-formations. Comparison: 09/10/2019. Findings: The right chest tube has been removed. Moderate complex relatively chronic-appearing right hydropneumothorax with calcifications of the surrounding pleural surfaces, air-fluid level, and adjacent fibro atelectatic changes again noted which now demonstrates increased amount of pleural fluid as compared to prior examination. The aerated portions of the right hemithorax and the entire left hemithorax are otherwise relatively normal and clear. Subcentimeter mediastinal and hilar lymph nodes are stable and nonspecific. The mediastinum demonstrates stable atherosclerotic changes to the thoracic aorta and coronary arteries without aortic aneurysm or cardiomegaly. No pericardial effusion. Incidental nodular appearance to the right thyroid lobe. Osseous structures are intact, stable, and without acute process. Impression: 1. Moderate chronic/complex right hydropneumothorax increased pleural fluid as compared to prior examination. Otherwise stable examination. Electronically Signed by Jeffry Asher MD 09/26/2019 03:38 A
[2019-09-26 06:00] VITALS: BP 126/77
[2019-09-26 06:33] LABS: HEMOGLOBIN 13.3 g/dl (13.5-17.5); MEAN CORPUSCULAR HEMOGLOBIN 27.1 pg (27.0-33.0); MEAN CORPUSCULAR HGB CONC 32.4 g/dl (32.0-36.5); MEAN CORPUSCULAR VOLUME 83.5 fl (80.0-96.0); PLATELET COUNT, AUTOMATED 295 10^3/uL (150-450); RED BLOOD COUNT 4.91 10^6/uL (4.30-6.10); WHITE BLOOD COUNT 7.3 10^3/uL (4.0-10.0)
[2019-09-26 07:00] LABS: BLOOD UREA NITROGEN 22 MG/DL (7-18); CALCIUM LEVEL 8.8 MG/DL (8.5-10.1); CARBON DIOXIDE LEVEL 28 MEQ/L (21-32); CHLORIDE LEVEL 111 MEQ/L (98-107); CREATININE FOR GFR 1.29 MG/DL (0.70-1.30); GLOMERULAR FILTRATION RATE > 60.0 (>56); GLUCOSE, FASTING 96 MG/DL (70-100); SODIUM LEVEL 143 MEQ/L (136-145)
[2019-09-26] MEDS: ADVAIR HFA 230/21MCG INHALER INH SCH ×2 (07:48→19:33)
[2019-09-26] MEDS: ASPIRIN 81 MG ENTERIC TAB PO SCH (08:18)
[2019-09-26] MEDS: ENOXAPARIN 40 MG/0.4 ML SYRINGE (J1650) SC SCH ×2 (08:18→08:34)
[2019-09-26] MEDS: lisinopriL 10 MG TAB PO SCH (08:18)
[2019-09-26 13:31] VITALS: BP 110/70
--- NOTE | 2019-09-26 15:52 | IPNPDOC ---
Text Note Date of Service The patient was seen on 09/26/19. NOTE TIME OF SERVICE 110 PM Mr. Grey is a 59-year-old male with past medical history of recurrent pleural effusion with hydropneumothorax who is admitted to the hospital for tr eatment of the same. SUBJECTIVE: The patient denies having any shortness of breath, chest pain, or any other acute complaints. OBJECTIVE: GEN: well-nourished / well developed/ NAD INTEGUMENT: not flushed/ not jaundice / he has a scar at the right lateral chest from an old chest tube HEENT: NCAT / lips acyanotic /mucus membranes moist and pink CVS: RRR/NMRG/ LUNGS: able to speak full sentences without stopping to take a breath / no coughing / breath sounds are diminished on the right side / there is dullness to percussion on the right side MSK/EXTREMITIES: range of motion intact in all 4 extremities / gait is normal NEURO: CN 2-12 are grossly intact / speech is not dysarthric PSYCH: alert and oriented to person place and time/ able to understand and follow all commands ASSESEMENT & PLAN: 1. Recurrent pleural effusion/empyema with hydropneumothorax. Today is day 2 of treatment with Zosyn Per discussion with Dr. Sebastian the patient stopped taking his Augmentin because of adverse GI effects; we will switch to cefuroxime 500 mg by mouth twice a day tomorrow 2. Chronic hypertension Continue lisinopril. 3. Chronic COPD Continue with home meds. 4. Bipolar disorder. Home meds DVT prophylaxis Lovenox. Disposition possibly home tomorrow afternoon pending assessment of tolerance to by mouth meds VS,Fishbone, I+O VS, Fishbone, I+O Laboratory Tests 09/26/19 06:18 Vital Signs Date Time Temp Pulse Resp B/P (MAP) Pulse Ox O2 Delivery O2 Flow Rate FiO2 09/26/19 13:31 98.2 78 18 110/70 (83) 98 Room Air I&O- Last 24 Hours up to 6 AM 09/26/19 06:00 Intake Total 100 ml Balance 100 ml EFREN TAN MD Sep 26, 2019 15:52
[2019-09-26] MEDS: TAMSULOSIN 0.4 MG CAP PO SCH (20:08)
[2019-09-26] MEDS: DIVALPROEX 250 MG TAB PO SCH (20:08)
[2019-09-26 22:00] VITALS: BP 98/63
[2019-09-27] MEDS: PIPERACILLIN/TAZOBACTAM SOD 4.5 GM in D5W MINI-BAG PLUS 50 ML IV SCH ×2 (02:33→08:49)
[2019-09-27 06:00] VITALS: BP 113/70
[2019-09-27 06:18] LABS: BASO # 0.1 10^3/uL (0.0-0.2); EOS # 0.5 10^3/uL (0.0-0.5); EOS % 6.6 % (0.0-3.0); HEMATOCRIT 41.3 % (42.0-52.0); HEMOGLOBIN 13.2 g/dl (13.5-17.5); LYMPH % 13.2 % (24.0-44.0); MEAN CORPUSCULAR HEMOGLOBIN 26.7 pg (27.0-33.0); MEAN CORPUSCULAR VOLUME 83.4 fl (80.0-96.0); MONO # 0.8 10^3/uL (0.0-0.8); MONO % 9.9 % (0.0-5.0); NEUTROPHILS # 5.4 10^3/uL (1.5-8.5); NEUTROPHILS % 68.7 % (36.0-66.0); PLATELET COUNT, AUTOMATED 310 10^3/uL (150-450); RED BLOOD COUNT 4.95 10^6/uL (4.30-6.10); WHITE BLOOD COUNT 7.9 10^3/uL (4.0-10.0)
[2019-09-27 06:47] LABS: CALCIUM LEVEL 8.6 MG/DL (8.5-10.1); CREATININE FOR GFR 1.38 MG/DL (0.70-1.30); GLOMERULAR FILTRATION RATE 56.5 (>56)
[2019-09-27] MEDS: ADVAIR HFA 230/21MCG INHALER INH SCH ×2 (08:04→19:43)
[2019-09-27] MEDS: ENOXAPARIN 40 MG/0.4 ML SYRINGE (J1650) SC SCH (08:49)
[2019-09-27] MEDS: ASPIRIN 81 MG ENTERIC TAB PO SCH (08:49)
[2019-09-27] MEDS: lisinopriL 10 MG TAB PO SCH (08:49)
[2019-09-27] MEDS: CEFUROXIME 500 MG TAB PO SCH ×2 (09:00→21:03)
[2019-09-27 14:00] VITALS: BP 124/67
[2019-09-27] MEDS: POLYVINYL ALCOHOL OPHTH SOLN 15 ML(LIQUITEARS) OU SCH ×2 (16:30→21:03)
[2019-09-27] MEDS: DIVALPROEX 250 MG TAB PO SCH (21:03)
[2019-09-27] MEDS: TAMSULOSIN 0.4 MG CAP PO SCH (21:03)
--- NOTE | 2019-09-27 21:23 | IPNPDOC ---
Text Note Date of Service The patient was seen on 09/27/19. NOTE SUBJECTIVE Mr. Grey is a 59-year-old male with complicated but resolving pneumonia with resolving empyema. He has shown remarkable radiologic improvement. OBJECTIVE Please see vital signs below Physical exam: HEENT: Neck is supple with no adenopathy or thyromegaly Cardiovascular exam regular rate and rhythm with a normal S1 and S2. No appreciable murmur or bruit. Lungs: Are remarkably clear to auscultation. He does not have any notable rhonchi, rales. He is somewhat diminished to the right base. Abdomen: Patient does have significant central obesity, relative to his overall body habitus. Extremities no peripheral edema or lesions, pedal pulses are palpable Neuro: No focal neuromotor or sensory deficit. Psych: he does have some anxiety and agitation ASSESSMENT/PLAN: Resolving pneumonia, resolving empyema. Patient is doing well. He does not currently require IV antibiotics and cefuroxime has been suggested as an oral alternative agent He appears to be tolerating this medication well. He had previously been treated with oral Augmentin which caused significant gastric disturbance. VS,Fishbone, I+O VS, Fishbone, I+O Laboratory Tests 09/27/19 05:51 Vital Signs Date Time Temp Pulse Resp B/P (MAP) Pulse Ox O2 Delivery O2 Flow Rate FiO2 09/27/19 14:00 97.7 88 15 124/67 (86) 98 09/27/19 06:00 Room Air I&O- Last 24 Hours up to 6 AM 09/27/19 06:00 Intake Total 2240 ml Balance 2240 ml SANDRA RESENDIZ MD Sep 27, 2019 21:23
[2019-09-27 22:00] VITALS: BP 118/68
[2019-09-28 06:00] VITALS: BP_SYST 118; BP_SYST 139; BP_DIAS 68; BP_DIAS 86
[2019-09-28] MEDS: ADVAIR HFA 230/21MCG INHALER INH SCH (07:44)
[2019-09-28 08:42] VITALS: BP 139/86
[2019-09-28] MEDS: ASPIRIN 81 MG ENTERIC TAB PO SCH (08:42)
[2019-09-28] MEDS: lisinopriL 10 MG TAB PO SCH (08:42)
[2019-09-28] MEDS: CEFUROXIME 500 MG TAB PO SCH (08:42)
[2019-09-28] MEDS: ENOXAPARIN 40 MG/0.4 ML SYRINGE (J1650) SC SCH (08:42)
[2019-09-28] MEDS: POLYVINYL ALCOHOL OPHTH SOLN 15 ML(LIQUITEARS) OU SCH (08:45)
[2019-09-28] MEDS ORDERED: CEFU50TA PO (09:02)
--- NOTE | 2019-09-28 21:04 | DS.PDOC ---
Discharge Summary General Date of Admission Sep 25, 2019 at 13:01 Date of Discharge 09/28/2019 Discharge Summary PROCEDURES PERFORMED DURING STAY: [None]. ADMITTING DIAGNOSES: 1. [Resolving empyema]. DISCHARGE DIAGNOSES: 1. [Resolving empyema, COPD, essential hypertension, bipolar disorder]. COMPLICATIONS/CHIEF COMPLAINT: Empyema Of Lung. HISTORY OF PRESENT ILLNESS/HOSPITAL COURSE: [59 year old male with recent history of empyema requiring drainage with a chest tube. Had done quite well but was concerned that he needed IV antibiotics. He was not having cough or fever or hypoxia. Patient was placed on IV antibiotics; contacted pulmonary service and patient was placed on oral antibiotics per their recommendations. Patient continued to do well and was stable for discharge to home.]. DISCHARGE MEDICATIONS: Please see below. ALLERGIES: Please see below. PHYSICAL EXAMINATION ON DISCHARGE: VITAL SIGNS: Please see below. HEENT: Neck is supple with no adenopathy or thyromegaly Cardiovascular exam regular rate and rhythm with a normal S1 and S2. No appreciable murmur or bruit. Lungs: Are remarkably clear to auscultation. He does not have any notable rhonchi, rales. He is somewhat diminished to the right base. Abdomen: Patient does have significant central obesity, relative to his overall body habitus. Extremities no peripheral edema or lesions, pedal pulses are palpable Neuro: No focal neuromotor or sensory deficit. Psych: he does have some anxiety and agitation LABORATORY DATA: Please see below. IMAGING: PROGNOSIS: ACTIVITY: [As tolerated]. DIET: [Heart healthy] DISCHARGE PLAN: [Patient is stable for discharge to home. Does not have an oxygen requirement. Continue with oral antibiotics as directed by pulmonary service; follow up with pulmonary Dr. Sebastian as scheduled. Continue with smoking cessation.] DISPOSITION: Home, Self-Care. DISCHARGE INSTRUCTIONS: 1. . ITEMS TO FOLLOWUP ON ON OUTPATIENT: 1. . DISCHARGE CONDITION: [Stable]. TIME SPENT ON DISCHARGE: [35] minutes. Vital Signs/I&Os Vital Signs Date Time Temp Pulse Resp B/P (MAP) Pulse Ox O2 Delivery O2 Flow Rate FiO2 09/28/19 08:42 139/86 09/28/19 06:00 98.6 59 15 98 09/27/19 06:00 Room Air I&O- Last 24 Hours up to 6 AM 09/28/19 06:00 Intake Total 1970 ml Balance 1970 ml Microbiology Microbiology 1/20/20 Blood Culture - Preliminary, Resulted No Growth after 72 hours. All specime... 09/25/19 Blood Culture - Preliminary, Resulted No Growth after 72 hours. All specime... Discharge Medications Scheduled Aspirin (Aspirin EC) 81 Mg Tablet.dr, 81 MG PO DAILY, (Reported) Cefuroxime Axetil (Cefuroxime) 500 Mg Tablet, 500 MG PO BID Divalproex Sodium (Divalproex Sodium) 250 Mg Tablet.dr, 250 MG PO QHS, (Reported) Fluticasone Propion/Salmeterol (Fluticasone-Salmeterol 232-14) 1 Each Aer.pow.ba, 2 PUFFS INH BID, (Reported) Lisinopril (Lisinopril) 10 Mg Tablet, 10 MG PO DAILY, (Reported) Tamsulosin Hcl (Tamsulosin HCl) 0.4 Mg Capsule, 0.4 MG PO QHS, (Reported) Scheduled PRN Carboxymethylcellulos/Glycerin (Lubricant 0.5-0.9% Eye Drops) 15 Ml Drops, 1 DROP OU QID PRN for DRY EYES, (Reported) Allergies Coded Allergies: amoxicillin (Verified Adverse Reaction, Unknown, N/V, 09/25/19) clavulanic acid (Verified Adverse Reaction, Unknown, N/V, 09/25/19) haloperidol (Verified Adverse Reaction, Unknown, MUSCLE SPASM, 09/08/19) SANDRA RESENDIZ MD Sep 28, 2019 21:04
== END 2019-09-28 12:10 | disposition home or self-care (01) | DRG 137 ==
LOC: M ED 10:49 → M ED INP 13:01 → ENRESERVTM 15:23 → ENRESERVDT 15:23 → M MS5PR 16:25
PROVIDERS: ADMIT Student in an Organized Health Care Education/Training Program; ATTEND Internal Medicine
DX: J86.9 Pyothorax without fistula (principal); J94.8 Other specified pleural conditions; I10 Essential (primary) hypertension; J44.9 Chronic obstructive pulmonary disease, unspecified; F31.9 Bipolar disorder, unspecified; Z79.899 Other long term (current) drug therapy; Z79.82 Long term (current) use of aspirin; Z88.0 Allergy status to penicillin; Z88.8 Allergy status to other drugs, medicaments and biological substances

== ENCOUNTER 2023-05-27 14:48 | Emergency (ER) | payer OTHER ==
[~2023-05-27] VITALS: Ht 167.6 cm; Wt 95.4 kg
[~2023-05-27 14:48] MED LIST changes: +ALBU8.5H; +CEFU50TA PO; +FLUT1INH3 INH; +LISI10TA22 PO; -LISI10TA4 PO; +LUBR1DRO OU; +METH-1164 PO; +OXYC1TAB23; +PRED20TA PO
[2023-05-27 14:50] VITALS: BP 144/83; TEMP 97.8; O2SAT 97
== END 2023-05-27 15:26 | disposition left against medical advice (07) ==
LOC: M ED 14:48
DX: Z53.21 Procedure and treatment not carried out due to patient leaving prior to being seen by health care provider (principal)